=== PATIENT | male | born 1950 | race Caucasian/White ===

== ENCOUNTER 2017-03-06 18:08 | Inpatient (IN) | payer MEDICARE, OTHER ==
[~2017-03-06] VITALS: Ht 182.9 cm; Wt 117.2 kg
[~2017-03-06 18:08] MED LIST: ASCO250T6 PO; BUM1 PO; CHOL200035 PO; COU25 PO; COU5 PO; COZ25 PO; DOXE1CAP PO; FEBU40TA PO; FES300 PO; K10 PO; METO-271 PO; SIMV40TA5 PO; SPIR25TA PO; TAM4 PO; [UNRECOGNIZED DRUG - CODE] PO
[2017-03-06 18:26] VITALS: BP 83/56; PULSE 144; RESP 18; O2SAT 97
--- NOTE | 2017-03-06 18:53 | ED.REPORT ---
HPI-Chest Pain 40 and Over Date of Service Mar 06, 2017 ED Provider: Dr. Nicole The pt is a 67 y/o male on Warfarin with a hx of HTN, DM, chronic ischemic cardiomyopathy, A-fib (with defibrillator pacemaker), CAD, one-vessel bypass surgery, mitral valve disease (s/p annuloplasty repair), and stage 3 kidney disease who presents to the ED due to low BP and high heart rate, onset 6 hours ago. The pt had called Dr. Waller reporting BP of 77/60 and HR of 140, who recommended he go to the ED for cardioversion. He went for a walk this morning after which he began feeling sluggish. Associated sx include exertional shortness of breath and intermittent lightheadedness He denies chest pain. Nursing Notes Stated Complaint: LOW BLOOD PRESSURE/SENT FROM DR WALLER Chief Complaint: General Complaint Nursing Notes Reviewed: Yes Allergies: Coded Allergies: Sulfa (Sulfonamide Antibiotics) (Verified Allergy, Severe, 01/31/12) allopurinol (Unverified Allergy, Unknown, RASH - DIFFUSE, 08/03/13) Uncoded Allergies: PENICILLIN (Allergy, 08/03/13) Scheduled Ascorbic Acid-Expunged Drug, Do Not Renew! (Vitamin C-Expunged Drug, Do Not Renew!) 250 Mg Tablet 500 MG PO DAILY Bumetanide (Bumetanide) 1 Mg Tablet 3 MG PO BID CHOLECALCIFEROL-Expunged Drug, Do Not Renew! (VITAMIN D3-Expunged Drug, Do Not Renew!) 2,000 Unit Capsule 2,000 UNIT PO DAILY Febuxostat-Expunged Drug, Do Not Renew! (Uloric-Expunged Drug, Do Not Renew!) 40 Mg Tablet 40 MG PO DAILY OR TAKE DIRECTED Ferrous Sulfate-Expunged Drug, Do Not Renew! (Feosol-Expunged Drug, Do Not Renew !) 325 Mg Tablet 325 MG PO BID Losartan-Expunged Drug, Do Not Renew! (Losartan-Expunged Drug, Do Not Renew!) 25 Mg Tablet 25 MG PO DAILY Metoprolol Succinate ER (Metoprolol Succinate ER) 50 Mg Tab.er.24h 50 MG PO QAM Metoprolol Succinate ER (Metoprolol Succinate ER) 25 Mg Tab.er.24h 25 MG PO HS Mexiletine HCl (Mexiletine HCl) 200 Mg Capsule 200 MG PO Q8 Simvastatin-Expunged Drug, Choose New Med! (Simvastatin-Expunged Drug, Choose New Med!) 40 Mg Tablet 1 TAB PO DAILY Tamsulosin-Expunged Drug, Do Not Renew! (Flomax-Expunged Drug, Do Not Renew!) 0.4 Mg Capsule 0.4 MG PO DAILY Warfarin Sodium (Warfarin Sodium) 5 Mg Tablet 5 MG PO DAILY General Time Seen by MD: 18:52 Chief Complaint Shortness of breath Hx Obtained From: Patient Arrived By: Walk-in Sudden in Onset?: Yes Onset Occurred: 5 - 8 hours ago Symptom Duration: Since onset Severity: Current: No pain currently Severity: Maximum: No pain Recent Healthcare: Recent doctor visit Past Medical History Past Medical History 1. Coronary artery disease, with previous history of coronary artery bypass grafting in 1999. a. Severe ischemic cardiomyopathy, with last ejection fraction 20% to 25%, status post AICD placement in 2006. 2. Mitral valve disease, status post annuloplasty repair. AV node ablation and biventricular ICD placement. 3. Chronic atrial fibrillation, on warfarin. 4. Stage 3 chronic kidney disease. 5. Right middle lung pneumonia, April 2010, requiring hospitalization. 6. Atopic dermatitis. 7. Chronic venous stasis with recurrent lower extremity cellulitis. 8. Hypertension. 9. Dyslipidemia. 10. Obesity. 11. Gout. 12. Chronic lung disease, with last pulmonary function test June 2013 showing mixed moderate restrictive and obstructive pattern. 13. Chronic anemia, on iron replacement. 14. BPH. 15. DM Past Surgical History Annuloplasty repair. AV node ablation and biventricular ICD placement. One vessel bypass surgery Mitral valve repair. Smoking History Unknown if Ever Smoker Social History Other Social History: Good social support, Ambulatory Status Independent Review of Systems Reports: low BP around 77/60 Reports: high HR around 140 Reports: feeling sluggish Respiratory: Reports: Shortness of breath Cardiovascular: Denies: Chest pain Neurologic: Reports: Lightheaded Complete sys rev & neg: except as marked. Physical Exam Initial Vital Signs Vital Signs (First) Date Time Temp Pulse Resp B/P Pulse Ox O2 Delivery O2 Flow Rate FiO2 03/06/17 18:26 36.4 144 18 83/56 97 Room Air Initial VS: Reviewed, Vital signs abnormal Head / Eyes: Atraumatic, Normocephalic Neck: Supple, Non-tender, Full range of motion Extremities: Vascular intact, Neuro intact, No swelling, No tenderness Skin: Warm, Dry, No cyanosis Neurologic: Alert, Oriented, Nonfocal General/Constitutional: Awake, Alert, Cooperative Respiratory / Chest: Atraumatic, Breath sounds NL, Breath sounds = bilat, No respiratory distress, No rales, No rhonchi, No wheezing Cardiovascular: Heart sounds NL, No gallop, No murmurs, No rubs Heart Rate / Rhythm: Positive: Irregular rhythm Wide-complex tachycardia Abdomen: Atraumatic, Soft, Non-tender, No guarding, No rebound Interpretation & Diagnostics Lab Results Interpretation Result Diagram: 03/06/17 1847 03/06/17 1847 Test 03/06/17 18:47 White Blood Count 6.8th/mm3 (3.8-10.1) Red Blood Count 3.71mil/mm3 (4.40-5.80) Hemoglobin 11.7g/dL (13.8-17.2) Hematocrit 36.4% (41.0-50.0) Mean Corpuscular Volume 98.1fL (81-100) Mean Corpuscular Hemoglobin 31.5pg (27.0-35.0) Mean Corpuscular Hemoglobin Concent 32.1% (32.0-37.0) Red Cell Distribution Width 13.7% (12.3-15.4) Platelet Count 115bil/L (150-400) Neutrophils (%) (Auto) 68.3% (40-74) Lymphocytes (%) (Auto) 18.3% (14-46) Monocytes (%) (Auto) 10.7% (4-12) Eosinophils (%) (Auto) 2.1% (0-5) Basophils (%) (Auto) 0.3% (0-3) Prothrombin Time 24.8sec (8.1-12.5) Prothromb Time International Ratio 2.28ratio Sodium Level 132mEq/L (134-144) Potassium Level 4.4mEq/L (3.5-5.2) Chloride Level 91mEq/L (97-108) Carbon Dioxide Level 24mmol/L (18-29) Blood Urea Nitrogen 71mg/dL (8-27) Creatinine 2.66mg/dL (0.76-1.27) Estimat Glomerular Filtration Rate 26mL/min (>59) Glucose Level 126mg/dL (60-99) Calcium Level 8.7mg/dL (8.5-10.1) Magnesium Level 2.5mg/dL (1.6-2.6) Total Bilirubin 0.4mg/dL (0.0-1.2) Aspartate Amino Transf (AST/SGOT) 19U/L (0-50) Alanine Aminotransferase (ALT/SGPT) 17U/L (0-44) Alkaline Phosphatase 119U/L (25-160) Troponin T < 0.010ug/L (0.0-0.011) Pro-B-Type Natriuretic Peptide 28401yb/mL (0-376) Total Protein 7.7g/dL (6.4-8.4) Albumin 4.3g/dL (3.4-5.0) Hold Mark Top Tube Received (Received) ECG Interpretation ECG Interpretation: Wide complex tachycardia. Rate 143. Right bundle branch block Time: 18:41 Interpreted by: ED physician CBC Interpretation Hgb low, Platelets low BMP / CMP Interpretation Na low, K+ normal, Glucose elevated, BUN elevated, Creatinine elevated Cardiac / Vascular Lab Interp BNP elevated, Troponin normal Serum Coags Interpretation INR normal, PT elevated X-Ray Chest Interpretation Chest Xray Interpretation: IMPRESSION: Allowing for technique and in comparison to old films there is no acute disease seen in the semi-upright portable chest. Dictated by: Jared Houston M.D. on 03/06/2017 at 20:07 Approved by: Jared Houston M.D. on 03/06/2017 at 20:09 View: Portable, 1 view Interpretation / Wet Read by: Interpret - Radiologist Procedures Electrical Cardioversion Electrical Cardioversion: 6 total cardioversions Time: 19:03 Procedure Performed by: Allied health pract Indication: Ventricular tachycardia Consent / Setup / Site Prep: Consent from patient, Time-out performed, Placed on oxygen, Placed on pulse oximeter, Place on ekg monitor tech, Hand hygiene observed, Stand sterile technique Procedural Sedation/Analgesia: Sedation: Ketamine Procedure Successful: Yes Post-Procedure / Complications: No complications, Condition improved, Tolerated procedure well, Patient stable Proced Mod Sedation/Analgesia Time: 19:00 Procedure Performed by: ED physician Sedation Time: 10 - 15 min Consent / Setup: Consent from patient, Time-out performed, Hand hygiene observed, Stand sterile technique, Position supine Indication: Other (cardioversion) Preparation: monitor technician applied, Pulse oximeter applied, Constant attendance, IV access established, Eval last meal time, Supplemental oxygen, Procedure explained, Suction available, End tidal CO2 mon applied Mallampati: Class & Anatomy: 1 tonsils/uvula/s palate Airway Exam: Normal facial anatomy, Normal neck anatomy, Normal anatomy CVS/Resp Exam: Normal breath sounds Neuro Exam: Alert, Responsive Sedation: Sedation: Ketamine Response During Procedure: Handled secretions adeq, Maintained airway well, Oxygenation stable, Sedation appropriate Complications During/After: None Reversal: None required Mental Status After Procedure: Alert, Oriented X3, Response to verbal stim, Response to painful stim, Normal per age Re-Eval/Medical Decision Source of Hx: Old records Time of Eval: 18:45 Re-Evaluation/Progress Note: Discussed diagnosis and plan to do a cardioversion post sedation. The pt understands and agrees with the plan. All questions answered. Time of Eval: 19:02 Re-Evaluation/Progress Note: First cardioversion. Rate down to 60. Discussed the plan to admit with the pt's . She understands and agrees with the plan. All questions answered. Time of Eval: 19:37 Re-Evaluation/Progress Note: Rechecked the pt. He is awake and alert. HR normal. Consultation #1: Referral / Consult Name: Tyrone Renae MD Consulted With: Cardiology Call Returned at: 19:11 Ragman: Agrees with eval, Agrees with plan Note: He agrees with the plan to administer amiodarone and fluids. Consultation #2: Referral / Consult Name: Tyrone Renae MD Consulted With: Cardiology Call Returned at: 19:49 Ragman: Agrees with eval, Agrees with plan Note: Dr. Renae updated on the pt's condition. He agrees with the plan to admit. Consultation #3: Referral / Consult Name: Milo Lopes MD Consulted With: Hospitalist Call Returned at: 19:43 Ragman: Will see patient, Agrees with eval, Agrees with plan, Accepts admit Counseled Regarding: Diagnosis, Lab results, Need for admission Discharge & Departure Primary Impression: Ventricular tachycardia Disposition: ADMITTED TO HOSPITAL Referrals: Marc Craft DO (PCP) Crit Care Except Billable Proc Time Spent: 30-74 minutes Services Performed: Patient management by me, Time spent at bedside, Reviewing test results, Reviewing imaging, Discussing patient care, Documentation in record, Time with fam/surrogate Critical Care Notes: Cardioversion Scribe Attestation Portions of this note were transcribed by Pedro Lr. Dr.Beia Tabitha, personally performed the history,physical exam and medical decision-making;I reviewed and confirmed the accuracy of the information in the transcribed note. Signed by Karan Rosario. 03/06/17 copies to: Marc Craft Todd P DO Mar 06, 2017 18:53 Pedro Lr Mar 06, 2017 19:15 Cardioversion Scribe Attestation Portions of this note were transcribed by Pedro Lr. Dr.Beia Tabitha, personally performed the history,physical exam and medical decision-making;I reviewed and confirmed the accuracy of the information in the transcribed note. Signed by Karan Rosario. 03/06/17 copies to: Marc Craft Todd P DO Mar 06, 2017 18:53 Pedro Lr Mar 06, 2017 19:15 Christopher Nicole DO Mar 06, 2017 18:53 Adeline,Pedro Mar 06, 2017 19:15
[2017-03-06] MEDS ORDERED: 0.9% Sodium Chloride 500 ML IV ONE (18:55)
[2017-03-06] MEDS ORDERED: Adenosine 3 mg/mL 2 mL Inj ONE (18:55)
[2017-03-06 18:59] LABS: BASOPHILS % (AUTO) 0.3 % (0-3); EOSINOPHILS % (AUTO) 2.1 % (0-5); MONOCYTES % (AUTO) 10.7 % (4-12); Mean Corpuscular Hemoglobin 31.5 pg (27.0-35.0); Mean Corpuscular Volume 98.1 fL (81-100); NEUTROPHILS % (AUTO) 68.3 % (40-74); Platelet Count 115 bil/L (150-400)
[2017-03-06] MEDS ORDERED: Amiodarone 150 mg/100 mL D5W Premix IV ONE (19:04)
[2017-03-06 19:05] VITALS: BP 102/73; PULSE 140; O2SAT 95
[2017-03-06 19:12] LABS: INR 2.28 ratio
[2017-03-06 19:34] LABS: TROPONIN T < 0.010 ug/L (0.0-0.011)
--- NOTE | 2017-03-06 20:01 | PCM.HPMED ---
Subjective Date of Service Mar 06, 2017 Primary Provider: Admitting Physician: Primary Care Physician: Sathish Attending Physician: Chief Complaint: Weak and patient noted a low blood pressure and elevated heart rate History of Present Illness: Angel Abebe is 67-year-old male with past medical history significant for four- vessel CABG in 1999, ischemic cardiomyopathy, atrial fibrillation status post AV node ablation and biventricular ICD placement on chronic anticoagulation with warfarin who presents to the ER per Dr. Fields due to ventricular tachycardia and hyportension. This morning the patient went outside and was carrying some wood and began to feel somewhat sluggish and short of breath. At this time his blood pressure was 77/66 and heart rate of 140. He called Dr. Fields with these results who subsequently interrogated his ICD. It showed ventricular tachycardia and Dr. Fields recommended patient present to the ER for cardioversion. On presentation to the emergency department patient's vitals were temp 36.4, pulse 144, respiratory rate 18, blood pressure 83/56, saturating 97% on room air. Initial labs revealed PT 24.8 and INR 2.28 along with an elevated BUN and creatinine of 71 and 2.66. EKG showed ventricular tachycardia at a rate of 143 with right bundle branch block. Consequently, the patient was cardioverted 4 times with 120 J and started on a Amiodarone drip after initial bolus of 300 mg. Patient remained in normal sinus rhythm at a rate of 60 for approximately 45 minutes at which time he converted back to wide complex ventricular tachycardia at a rate of 130 to 140. Patient again was cardioverted with 120 J and successfully converted to normal sinus rhythm again a rate of 60. Due to the patient's frequent conversion back to ventricular tachycardia Dr. Renae, [address], was consulted and recommended use of lidocaine and discontinuation of amiodarone if patient converted again. Patient did convert back to ventricular tachycardia and 100 mg of lidocaine was given. Patient remained in normal sinus rhythm for approximately 20 minutes until converted back to ventricular tachycardia as he was being transported to the ICU. A subsequent dose of 100 mg lidocaine was given and lidocaine infusion was started. Of note patient's last echocardiogram was in 2013 and showed an EF of 25-30%. Review of Systems: Comprehensive review of systems was conducted with the patient and found to be negative except as noted above in HPI. Allergies Coded Allergies: Sulfa (Sulfonamide Antibiotics) (Verified Allergy, Severe, 7/18/12) allopurinol (Unverified Allergy, Unknown, RASH - DIFFUSE, 08/03/13) Uncoded Allergies: PENICILLIN (Allergy, 08/03/13) Home Medications Obtained from outpatient records on 01/04/2017 05/31/2016 bumetanide 1 mg tablet take 3 Tablet by oral route 2 times every day 06/26/2016 Flomax 0.4 mg capsule take 1 capsule (0.4MG) by ORAL route every day 07/28/2015 iron ER 325 mg (65 mg iron) capsule,extended release take 1 Capsule by Oral route every day 11/16/2016 losartan 25 mg tablet take 1 tablet by oral route every day 12/17/2015 metoprolol succinate ER 25 mg tablet,extended release 24 hr 2 tablets in the am 1 tablet in the evening 12/29/2016 mexiletine 200 mg capsule take 1 capsule by oral route every 8 hours with food 05/31/2016 simvastatin 40 mg tablet take 1 tablet by oral route every day in the evening 05/31/2016 spironolactone 25 mg tablet take 0.5 Tablet (12.5MG) by oral route every day 06/14/2016 ULORIC 40MG TAB Take 1 tablet by mouth every day 08/15/2013 Vitamin C 500 mg tablet tab 1 by mouth daily Vitamin D3 2,000 unit capsule take 1 Capsule by Oral route once every day 10/05/2016 warfarin 5 mg tablet take 1 tablet (5mg) daily except 1 1/2 tablets ( 7.5mg) Wed PMH Third-degree AV block Ventricular tachycardia Status post CABG Mitral regurgitation Severe left ventricular systolic dysfunction Ischemic cardiomyopathy Hyperlipidemia Tricuspid regurgitation History of myocardial infarction CKD stage IV Hypertension Hyperlipidemia CAD BPH Atrial fibrillation status post AV node ablation and biventricular ICD placement Surgical History Biventricular ICD placement in 2007 CABG 4 in 1999 Mitral valve repair in 1999 Family History Father with type I diabetes Father diagnosed with CAD at age 43 now Mother at age 45 secondary to MVA Sister with hyperlipidemia and type I diabetes Multiple uncles with CAD and subsequent CABG procedures Social History Hx Alcohol Use: No Hx Substance Use: No Hx Tobacco Use: Yes (smoked for 40 years) Smoking Status: Former Smoker Years of Smokin Living Arrangement: with Family Exam Vital Signs Vital Sign - Last Date Time Temp Pulse Resp B/P Pulse Ox O2 Delivery O2 Flow Rate FiO2 8/22/17 18:26 36.4 144 18 83/56 97 Room Air Exam General: Mild distress, well-developed, well-nourished, appropriately interactive HEENT: Normocephalic, atraumatic. External ears without defect. Pupils equal, round, and reactive to light and accommodation. Anicteric sclerae, moist conjunctivae, and no lid lag. Dry oral mucosa. Neck: Supple with full range of motion. No lymphadenopathy or thyromegaly. Cardiovascular: Initially tachycardic but after lidocaine regular rate and rhythm with no murmurs appreciated. Pulmonary: Clear to auscultation bilaterally with no crackles, wheezes, or rhonchi. Normal respiratory effort with no use of accessory muscles. Abdomen: Bowel tones present. Soft, nontender, nondistended. No hepatosplenomegaly or masses appreciated. Extremities: Bilateral lower extremity pitting edema left greater than right extending to mid calf. Skin: Small area of ecchymosis on left lower abdomen. Lower extremity venous stasis changes left greater than right. Numerous surgical scars from CABG, ICD placement, and left vein graft. Neurological: Cranial nerves grossly intact. Normal muscle strength, tone, and bulk. Reflexes, coordination, and sensory function within normal limits. No known gait impairment. Psychiatric: Normal mood and affect. Alert and oriented to person, place, and time. Lab and Diagnostics Result Diagram: 03/06/17184603/06/171846 X-Rays, CTs and MRIs X-RAY CHEST ONE VIEW, PORTABLE ([id number]) IMPRESSION: Allowing for technique and in comparison to old films there is no acute disease seen in the semi-upright portable chest. Dictated by: Jared Houston M.D. on 03/06/2017 at 20:07 Approved by: Jared Houston M.D. on 03/06/2017 at 20:09 12-lead ECG Wide-complex ventricular tachycardia at a rate of 143 with right bundle branch block Cardiac Echo Impressions Echocardiogram Report Interpretation Summary The left ventricle is severely dilated. There is mild concentric left ventricular hypertrophy. The ejection fraction is estimated to be 25-30%. There is akinesis of the mid and distal anterior wall with dyskinesis of the apex. The distal inferior wall is akinetic as well as the mid and distal septum. Since the prior exam from 08/04/2013, the LV has dilated and the mid and distal inferior wall shows worsened contractility. In comparison to the exam from 09/19/2012, the contractility looks the same or better. Reading Physician:11:05 AM Assessment & Plan Angel Abebe is 67-year-old male with past medical history significant for one- vessel bypass in 1999, ischemic cardiomyopathy, recurrent ventricular tachycardia, atrial fibrillation status post AV node ablation and biventricular ICD placement on chronic anticoagulation with warfarin who presents to the ER per Dr. Fields due to ventricular tachycardia and hyportension. Wide-complex ventricular tachycardia, present on admission, active. Patient has had recurrent ventricular tachycardia in the past but had been well- controlled on mexiletine 200 mg every 8 hours and metoprolol succinate 50 mg every morning and 25 mg in the evening. On presentation to the ED EKG showed wide complex ventricular tachycardia at a rate of 143. - Patient was cardioverted a total of 5 times with 120 J which initially proved successful but patient converted back to ventricular tachycardia. Amiodarone bolus and drip was unsuccessful. After discussion with Dr. Renae, [address], amiodarone drip was stopped and lidocaine was initiated. - Patient responded to initial dose of 100 mg of lidocaine but then converted back to ventricular tachycardia and an additional dose was given along with starting a lidocaine infusion at a rate of 1 mg/m. - No electrolyte abnormalities noted. TSH pending. - Pacer pads placed and to remain on patient. - Admitted to ICU for close monitoring. - Cardiology is aware of patient and has been consulted and agrees to see patient in the morning. Chronic kidney disease stage IV, present admission, active. In review of outpatient records it appears the patient baseline creatinine is around 1.9-2.0. - Creatinine currently 2.66 and BUN 71. - Gentle IV fluids as patient's EF is 25-30%. - Repeat labs in the morning. - We will attempt to avoid nephrotoxic medications. Ischemic cardiomyopathy secondary to CAD status post bypass in 1999, present on admission, chronic. Patient has stable moderately severe left ventricular systolic dysfunction per Dr. Fields who he closely follows with. - Home medication regimen includes bumetanide 3 mg twice a day, losartan 25 mg daily, and spironolactone 12.5 mg daily. - Home medications held at this time. Cardiology and/or day team to restart when deemed appropriate. Atrial fibrillation status post AV node ablation with biventricular ICD placement, present on admission, chronic. - Anticoagulated with warfarin. INR on presentation was 2.28. - Continue warfarin. - Repeat PT/INR in the morning. Coronary artery disease status post 1 vessel bypass in 1999, present on admission, chronic. - Home regimen of simvastatin 40 mg nightly held. BPH, present on admission, chronic. - Due to tenuous blood pressures home regimen of Flomax 0.4 mg daily held. PRN Medications - Acetaminophen as needed for mild pain/fever/headache - Bowel regimen as needed Patient is admitted under inpatient status with expected length of stay greater than 2 midnights due to severity of presenting symptoms, risk of adverse event, and complexity of treatment plan. Pain Evaluation: Adequate Pain Control GI Prophylaxis: Not indicated VTE Prophylaxis: Theraputic Anticoag with Warfarin VTE Mechanical Devices: Intermittant Pneumatic CD Resuscitation Status: CPR: Attempt Resuscitation Time spent 55 minutes critical care time spend Attending Statement The patient was seen and examined together with Dr. Barron on 03/06 and I agree with the history, exam and plan as outlined in the note above. ANA ROSA BARRON DO Mar 06, 2017 20:01 Milo Lopes MD Mar 06, 2017 23:58
[2017-03-06] MEDS ORDERED: Amiodarone 50 mg/mL 3 mL Inj IV ONE ×3 (20:07→22:40)
--- NOTE | 2017-03-06 20:10 | DRSVH ---
PROCEDURE: X-RAY CHEST ONE VIEW, PORTABLE ([id number]) INDICATIONS: TACHYCARDIA TECHNIQUE: One view of the chest was acquired. COMPARISON: [facility], CR, CHEST 2VW, 01/30/2012, 20:56. FINDINGS: Surgical changes and devices: Dual-lead cardiac pacemaker is present. Previous sternotomy is noted. C ardiac monitor leads are seen. Lungs and pleura: No pleural effusions or pneumothorax. There is old pleural thickening in the right chest unchanged since 2011. Lungs are clear. Mediastinum: Mediastinal contours appear normal. Heart size is normal. Bones and chest wall: No suspicious bony lesions. Overlying soft tissues appear unremarkable. IMPRESSION: Allowing for technique and in comparison to old films there is no acute disease seen in t he semi-upright portable chest. Dictated by: Jared Houston M.D. on 03/06/2017 at 20:07 Approved by: Jared Houston M.D. on 03/06/2017 at 20:09
[2017-03-06] MEDS ORDERED: 0.9% Sodium Chloride 1,000 ML IV SCH ×2 (20:52→22:34)
[2017-03-06] MEDS ORDERED: Senna-Docusate 8.6-50 mg Tablet PO PRN (20:55)
[2017-03-06] MEDS ORDERED: Polyethylene Glycol (PEG) 17 Gm Powder PO PRN (20:55)
[2017-03-06] MEDS ORDERED: Alum-Mag Hydrox-Simeth 30 mL Suspension PO PRN (20:55)
[2017-03-06] MEDS ORDERED: Lidocaine 2% 20 mg/mL 5 mL Cardiac Syringe IVPUSH ONE ×2 (21:15→22:40)
[2017-03-06] MEDS: D5W IV SCH (21:46)
[2017-03-06] MEDS: LIDOCAINE 2 GM/500 ML IV SCH (21:46)
[2017-03-06 21:49] VITALS: BP 103/58; PULSE 60; RESP 19; O2SAT 99
[2017-03-06 22:08] VITALS: BP 97/63; PULSE 60; RESP 19; O2SAT 98
[2017-03-06] MEDS ORDERED: METO-272 PO (22:27)
[2017-03-06] MEDS ORDERED: MEXI200C PO (22:27)
[2017-03-06] MEDS ORDERED: WARF5TAB7 PO (22:27)
[2017-03-06] MEDS ORDERED: METO25TA99 PO (22:27)
[2017-03-06] MEDS ORDERED: BUME1TAB4 PO (22:28)
[2017-03-06] MEDS ORDERED: Adenosine 3 mg/mL 2 mL Inj IVPUSH ONE ×2 (22:35)
[2017-03-06] MEDS ORDERED: Ketamine 10 mg/mL 20 mL Inj IV ONE ×2 (22:35)
[2017-03-06] MEDS ORDERED: Amiodarone 150 mg/100 mL D5W IV ONE (22:45)
--- NOTE | 2017-03-06 23:21 | PCM.PHAPRO ---
Progress Date of Service: Mar 06, 2017 Weak and patient noted a low blood pressure and elevated heart rate Warfarin Management per Pharmacy: Indication: Stroke prophylaxis as patient has atrial fibrillation ([id number]- Vasc = 5) Goal INR: 2-3 Home Dose: Warfarin 5 mg PO daily Labs: Hgb/Hct: 11.7/36.4 Plt: 115 INR: 2.28 Drug Interactions: Amiodarone (major - recommend 30-50% decrease in dose) Recommendation: Warfarin 3 mg PO x 1 tonight. INR ordered daily x 7 days. Pharmacy to continue to monitor and adjust dose as needed. Thank You, Mirna Dale, Pharm D. Mirna Dale Mar 06, 2017 23:21
[2017-03-06 23:34] VITALS: BP 105/66; PULSE 60; RESP 13; O2SAT 96
--- NOTE | 2017-03-07 01:18 | NUR ---
Admit Patient admitted to room 2015 just prior to 2200. Patient in vtach on arrival, "converted while in elevator" according to RN. at bedside. Lidocaine push given by ED nurse which converts patient back to a paced rhythm of 60. Lidocaine drip hung. Patient A&O during vtach episode. Patient oriented to room and call light. Significant other present with patient. Plan of care for the night discussed with the patient.
[2017-03-07 02:54] LABS: APPEARANCE,URINE HAZY (CLEAR,HAZY); COLOR,URINE STRAW (YELLOW); OCCULT BLOOD,URINE NEGATIVE (NEGATIVE); UROBILINOGEN,URINE NORMAL (NORMAL)
[2017-03-07 03:04] LABS: Mean Corpuscular Volume 97.2 fL (81-100)
[2017-03-07 03:11] LABS: INR 2.27 ratio
[2017-03-07 03:22] LABS: Magnesium 2.4 mg/dL (1.6-2.6); Phosphorus 4.4 mg/dL (2.5-4.9)
[2017-03-07 03:41] VITALS: BP 106/58; PULSE 60; RESP 14; O2SAT 97
[2017-03-07 08:00] VITALS: BP 108/58; PULSE 62; RESP 14; O2SAT 99
--- NOTE | 2017-03-07 08:03 | NUR ---
Case Management: Clarification of patient status -> inpatient per MD order from admission. Jose Antonio Gross, RN
[2017-03-07] MEDS ORDERED: ASCO500C6 PO (09:41)
[2017-03-07] MEDS ORDERED: FEBU40TA PO (09:41)
[2017-03-07] MEDS ORDERED: LOSA25TA21 PO (09:41)
[2017-03-07] MEDS ORDERED: CHOL10008 PO (09:41)
[2017-03-07] MEDS ORDERED: FERR-83 PO (09:41)
[2017-03-07] MEDS ORDERED: TAMS0.4C98 PO (09:41)
[2017-03-07] MEDS ORDERED: Amiodarone 150 mg/100 mL D5W Premix IV ONE (10:31)
[2017-03-07] MEDS ORDERED: Amiodarone 360 mg/200 mL D5W Premix IV ONE (10:31)
--- NOTE | 2017-03-07 11:06 | NUR ---
NUTRITION ASSESSMENT: ASSESS: Pt is a 67yo M admitted to CCU for V tach and renal insufficiency. He is currently NPO x1 day. Cardiology is following. PMHX: Afib, CABG, ischemic cardiomyopathy, HLD, HTN, CKD stg IV LABS: Reviewed. 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 GI: 0 BM yet SKIN: no major issues CURRENT WTS: 117.9kg, BMI 35.3kg/m2, IBW: 80.9kg DIET: NPO x1 EST. NEEDS: BMI Kcals: 2360-2595kcal/day (20-22kcal/kg) Pro: 95-120g/day (1.2-1.5g/kg IBW) NUTRITION DIAGNOSIS: 1.) Inadequate oral intake related to decreased ability to consume sufficient energy as evidenced by current NPO status NUTRITION INTERVENTION: 1.) Recommend advance diet when medically appropriate MONITOR / EVAL: NPO, diet advce, GI, wt, labs, POC, nutrition status. Will continue to monitor per moderate nutrition risk guidelines.
[2017-03-07 12:00] VITALS: BP 107/63; PULSE 62; RESP 13; O2SAT 100
--- NOTE | 2017-03-07 12:54 | NUR ---
Case Management: LIZ explained to patient - he signed - original to chart, copy to patient's spouse at the bedside. Addendum: 03/07/17 at 1257 by KIRSTY REBOLLAR CM Signature: Jose Antonio Rebollar RN
[2017-03-07 16:00] VITALS: BP 108/69; PULSE 60; RESP 15
[2017-03-07] MEDS: LIDOCAINE 2 GM/500 ML IV SCH (17:26)
[2017-03-07] MEDS: D5W IV SCH (17:26)
--- NOTE | 2017-03-07 17:26 | NUR ---
Paced rhythm, 60s. Up to chair much of today. Brief runs of v-tach while up, X5 this shift; Lidocaine gtt increased to 4mg/min per cardiology. Painfree, in good spirits, eating well. VSS, afebrile.
--- NOTE | 2017-03-07 17:33 | NUR ---
Social Work: Initial Assessment/Multidisciplinary Rounds D: Per EMR review, pt is a 67 year old male admitted for V Tach, renal insufficiency. Pt is Medicare with [employer] Blue [employer] Supplement; pt has no LTC or VA benefits. PCP is Marc Craft MD. NOK is Whitley Abebe, , . Advanced directives completed- requested copy. Reamdit score not entered. Pt discussed in Multidisciplinary rounds. Capacity for self care discussed; no concerns. Pt is I at baseline. D/c needs unknown due to CCU status. HELP DESK ASSOCIATE met with the patient at bedside. Sw role explained, contact info and d/c planning checklist provided. See initial assessment. Pt lives on [address] with his in a single story home with 3 steps to enter. Pt is I with ADLs and uses no DME and continues to drive. Pt has never had HH or skilled rehab. Pt and spouse anticipate discharge home once medically stable however are receptive to discharge planning as needs arise. A: pt who is I at baseline. P: Evolving; HELP DESK ASSOCIATE to continue to follow to assess pt's discharge needs pending clinical course RUBEN Arguello Addendum: 03/07/17 at 1736 by BRITT MARQUEZ Amended: Links added.
--- NOTE | 2017-03-07 18:03 | NUR ---
Amiodarone was not started today per fuel efficient automobile designer; pharmacy notified regarding Coumadin dosing.
[2017-03-07 19:26] VITALS: BP 123/58; PULSE 60; RESP 15; O2SAT 96
--- NOTE | 2017-03-07 20:51 | PCM.PNMED ---
Subjective Date of Service Mar 07, 2017 Subjective Subjective: Patient states that he is feeling well this morning, continues to have minor chest pain, minor shortness of breath. Sitting up in bed on exam Events Overnight: No acute events overnight. ROS: Chest pain, shortness of breath. Denies fever/chills, nausea/vomiting, headache, weakness, abdominal pain, chest pain, shortness of breath, increased swelling in hands or feet. Exam Vital Signs Vital Sign - Last Date Time Temp Pulse Resp B/P Pulse Ox O2 Delivery O2 Flow Rate FiO2 03/07/17 19:26 36.6 60 15 123/58 96 Room Air 03/06/17 22:08 2 Intake and Output 03/06/17 03/06/17 03/07/17 Cumulative From/Thru 15:00 23:00 07:00 03/06/17 18:26 - 03/07/17 06:27 Intake Total 643 ml 643 ml Output Total 850 ml 850 ml Balance -207 ml -207 ml Intake Oral 100 ml 100 ml IV Total 543 ml 543 ml Output Urine Total 850 ml 850 ml Exam General: No acute distress, well-developed, well-nourished Head: Normocephalic, atraumatic. External ears without defect. Eyes: Pupils equal, round, and reactive to light and accommodation. Anicteric sclerae, moist conjunctivae. Neck: Normal range of motion, no lymphadenopathy noted Cardiovascular: Regular rate and rhythm with no murmurs, rubs, or gallops appreciated Pulmonary: Clear to auscultation bilaterally with no crackles, wheezes, or rhonchi. Normal respiratory effort with no use of accessory muscles. Abdomen: Bowel tones present. Soft, nontender, nondistended. Extremities: No clubbing, cyanosis, edema Skin: Normal temperature, turgor, and texture; no rash, ulcers, or subcutaneous nodules appreciated. Neurological: Cranial nerves grossly intact. Reflexes, coordination, and sensory function within normal limits. Normal muscle strength, tone, and bulk. Psychiatric: Normal mood and affect. Alert and oriented to person, place, and time IVs and Medications IV Fluids 500 mL normal saline delivered with IV medications. Medications Reviewed: Medications were reviewed in detail Medications High risk medications include: Warfarin Lidocaine drip Lab and Diagnostics Result Diagram: 03/07/17 0240 03/07/17 0240 X-Rays, CTs and MRIs X-RAY CHEST ONE VIEW, PORTABLE ([id number]) IMPRESSION: Allowing for technique and in comparison to old films there is no acute disease seen in the semi-upright portable chest. Dictated by: Jared Houston M.D. on 03/06/2017 at 20:07 Approved by: Jared Houston M.D. on 03/06/2017 at 20:09 12-lead ECG Wide-complex ventricular tachycardia at a rate of 143 with right bundle branch block Cardiac Echo Impressions Echocardiogram Report Interpretation Summary The left ventricle is severely dilated. There is mild concentric left ventricular hypertrophy. The ejection fraction is estimated to be 25-30%. There is akinesis of the mid and distal anterior wall with dyskinesis of the apex. The distal inferior wall is akinetic as well as the mid and distal septum. Since the prior exam from 08/04/2013, the LV has dilated and the mid and distal inferior wall shows worsened contractility. In comparison to the exam from 09/19/2012, the contractility looks the same or better. Reading Physician:11:05 AM Assessment & Plan Angel Abebe is 67-year-old male with past medical history significant for one- vessel bypass in 1999, ischemic cardiomyopathy, recurrent ventricular tachycardia, atrial fibrillation status post AV node ablation and biventricular ICD placement on chronic anticoagulation with warfarin who presents to the ER per Dr. Fields due to ventricular tachycardia and hyportension. Wide-complex ventricular tachycardia, present on admission, active. Patient has had recurrent ventricular tachycardia in the past but had been well- controlled on mexiletine 200 mg every 8 hours and metoprolol succinate 50 mg every morning and 25 mg in the evening. On presentation to the ED EKG showed wide complex ventricular tachycardia at a rate of 143. - Patient was cardioverted a total of 5 times with 120 J which initially proved successful but patient converted back to ventricular tachycardia. Amiodarone bolus and drip was unsuccessful. After discussion with Dr. Renae, front tender, amiodarone drip was stopped and lidocaine was initiated. - Patient responded to initial dose of 100 mg of lidocaine but then converted back to ventricular tachycardia and an additional dose was given along with starting a lidocaine infusion at a rate of 1 mg/m. - No electrolyte abnormalities noted. - TSH within normal limits - Pacer pads placed and to remain on patient. - Admitted to ICU for close monitoring. - Cardiology is aware of patient and has been consulted and agrees to see patient in the morning. - Per cardiology IV lidocaine increase to 4 mg/m - Initial troponin negative Chronic kidney disease stage IV, present admission, active. In review of outpatient records it appears the patient baseline creatinine is around 1.9-2.0. - Creatinine trending down. - Continue to follow - We will attempt to avoid nephrotoxic medications. Ischemic cardiomyopathy secondary to CAD status post bypass in 1999, present on admission, chronic. Patient has stable moderately severe left ventricular systolic dysfunction per Dr. Fields who he closely follows with. - Home medication regimen includes bumetanide 3 mg twice a day, losartan 25 mg daily, and spironolactone 12.5 mg daily. - Home medications held at this time. Cardiology team to restart when deemed appropriate. Atrial fibrillation status post AV node ablation with biventricular ICD placement, present on admission, chronic. - Anticoagulated with warfarin. INR on presentation was 2.28. - Continue warfarin. - Continue to monitor Coronary artery disease, present on admission, chronic. - Status post 1 vessel bypass (1999) - Home regimen of simvastatin 40 mg nightly held. BPH, present on admission, chronic. - Due to tenuous blood pressures home regimen of Flomax 0.4 mg daily held. PRN Medications - Acetaminophen as needed for mild pain/fever/headache - Bowel regimen as needed Disposition: Continue to monitor expected length of stay 1-2 days with discharge home. GI Prophylaxis: Not indicated VTE Prophylaxis: Theraputic Anticoag with Warfarin VTE Mechanical Devices: Intermittant Pneumatic CD Resuscitation Status: CPR: Attempt Resuscitation Time spent 35 minutes Attending Statement I have seen and evaluated patient at bedside in addition to directly supervising care provided by resident physician. I agree with above documentation. Very much appreciated cardiology consultation with this complex patient, will continue to await further recommendations while Lidocaine drip is continued. Jose Medina DO Mar 07, 2017 20:51 Jose Singh DO Mar 08, 2017 08:01
[2017-03-07 23:30] VITALS: BP 132/65; PULSE 60; RESP 24; O2SAT 94
[2017-03-08] MEDS: LIDOCAINE 2 GM/500 ML IV SCH ×2 (01:47→10:53)
[2017-03-08] MEDS: D5W IV SCH ×2 (01:47→10:53)
[2017-03-08 03:35] LABS: Mean Corpuscular Hemoglobin 31.5 pg (27.0-35.0); Mean Corpuscular Volume 97.2 fL (81-100)
[2017-03-08 03:49] LABS: INR 2.46 ratio
[2017-03-08 04:55] LABS: TROPONIN T 0.01 ug/L (0.0-0.011)
[2017-03-08 04:56] VITALS: BP 125/76; PULSE 60; RESP 15; O2SAT 94
[2017-03-08 05:15] LABS: Magnesium 2.4 mg/dL (1.6-2.6); Phosphorus 2.8 mg/dL (2.5-4.9)
--- NOTE | 2017-03-08 06:09 | NUR ---
Cardiac Tele paced, 60 at rest, up to 80s with activity. Patient has a 3 beat run of vtach, otherwise just PVCs are noted on telemetry. Lidocaine gtt remains at 4mg/min. Patient denies any chest discomfort, dizziness, or shortness of breath. MD updated on patient condition. Addendum: 03/08/17 at 0644 by SARABJIT FAULKNER RN After getting up to the edge of the bed to use the urinal patient states he has chest pain. When asked if it feels like his angina usually does he responds yes. Rates it as a 3-4/10. Pain resolves within one minute before an EKG could be performed. No changes to telemetry or HR, O2 and BP stable. No other symptoms.
[2017-03-08 08:45] VITALS: BP 124/59; PULSE 60; RESP 15; O2SAT 94
--- NOTE | 2017-03-08 12:24 | PCM.PHAPRO ---
Progress Weak and patient noted a low blood pressure and elevated heart rate WARFARIN DOSING PER PHARMACY [facility] DFF Date Mar 07-Mar 08-Feb INR 2.28 2.27 2.46 INR change -0.01 0.19 Warf Dose 3 mg 3MG 3 MG A/P Therapeutic INR. Currently taking lower dose than home regimen due to potential drug-drug interactions. Will continue with warfarin 3 mg this evening and continue to monitor for s/s of bleeding. -Reinier Maguire, PharmD Reinier Maguire Mar 08, 2017 12:24
[2017-03-08 12:30] VITALS: BP 142/76; PULSE 60; RESP 15; O2SAT 94
--- NOTE | 2017-03-08 12:30 | PCM.PHAPRO ---
Progress Weak and patient noted a low blood pressure and elevated heart rate [facility] -Feb 18-Mar 03-Mar 04-Mar 05-Mar 06-Feb 23-Mar 08-Feb 2.14 2.14 2.04 1.6 1.65 1.63 2.14 -0.1 1.6 0.05 -0.02 3 2.5 3 2.5 3 5X1 8 MG GIVEN 5+3 6 mg A/P -Subtherapeutic INR. Now stabilized at current level. Has received higher doses the past two doses. -Will dose warfarin at 6 mg today in anticipation of increase in next day or so. Will continue to monitor Reinier Maguire, PharmReinier Morrell Mar 08, 2017 12:30
[2017-03-08] MEDS: MeTOProlol XL 50 mg ER24 Tablet PO SCH (13:07)
--- NOTE | 2017-03-08 13:42 | PCM.CHPCAR ---
Consult Subjective Date of service Mar 08, 2017 Date of admit Mar 06, 2017 at 20:06 Provider Requesting Consult Requesting Provider: Jose Medina DO Primary Care Physician Primary Care Physician: Sathish Chief Complaint Dyspnea, hypotension and tachycardia History of Present Illness This is [id number] male with past medical history significant for CABG x 4 [place] vessels in 1999, ischemic cardiomyopathy, atrial fibrillation s/p AV node ablation and biventricular ICD placement on chronic anticoagulation with warfarin who presents to the ER after contacting Dr Fields for dyspnea, hypotension and tachycardia. He was working in the yard and noticed he was more SOB than usual and slower moving than usual. He checked his blood pressure and found it to be in the 70s systolic with a heart rate of 140. He notified Dr. Fields who remotely interrogated his ICD and was seen to be in ventricular tachycardia. He states he was only having dyspnea and denies palpitation, chest pain, chest pressure, chest discomfort, dizziness or lightheadedness. In the ED he was found to be in ventricular tachycardia. Cardioversion was attempted 4 times and amiodarone was started. He remained in normal sinus rhythm for a short time and converted back to wide complex ventricular tachycardia. Amiodarone was then discontinued and Dr Renae ordered a lidocaine infusion. The patient is currently resting comfortably in bed. He denies dyspnea and continues to denies chest pain, chest discomfort, chest pressure, palpitations, dizziness or lightheadedness. Initial EKG in the ED showed wide complex ventricular tachycardia at a rate of 143. Interrogation of ICD on 02/19/17 showed pacing 96% and a single non sustained vetricular tachycardia lasting 10 seconds. patient's last echocardiogram was in 2013 and showed an EF of 25-30%. Review of CABG procedure notes shows he had saphenous vein to LAD, saphenous vein to OM1, saphenous vein to OM2, saphenous vein to PDA and mitral valve repair with 30mm michael annuloplasty Review of Systems General: Denies: Change in exercise capacity No Chills No Fever Respiratory: Reports: Dyspnea with exertion Denies: Dyspnea at rest Orthopnea Significant dyspnea Cardiovascular: Reports: Lower extremity edema Denies: Chest Discomfort Claudication Lightheadedness or syncope Palpitations Postural lightheadedness Gastrointestinal: Denies: Nausea Vomiting PMH Past Medical History 1. Coronary artery disease, with previous history of coronary artery bypass grafting in 1999. 2. Severe ischemic cardiomyopathy, with last ejection fraction 20% to 25%, status post AICD placement in 2006. 3. Mitral valve disease, status post annuloplasty repair. AV node ablation and biventricular ICD placement. 4. Chronic atrial fibrillation, on warfarin. 5. Stage 3 chronic kidney disease. 6. Right middle lung pneumonia, April 2010, requiring hospitalization. 7. Atopic dermatitis. 8. Chronic venous stasis with recurrent lower extremity cellulitis. 9. Hypertension. 10. Dyslipidemia. 11. Obesity. 12. Gout. 13. Chronic lung disease, with last pulmonary function test June 2013 showing mixed moderate restrictive and obstructive pattern. 14. Chronic anemia, on iron replacement. 15. BPH. 16. DM Scheduled Bumetanide (Bumetanide) 1 Mg Tablet 3 MG PO BID (Reported) Ferrous Sulfate (Ferrous Sulfate) 325 Mg Tablet 325 MG PO BID (Reported) Metoprolol Succinate ER (Metoprolol Succinate ER) 50 Mg Tab.er.24h 50 MG PO QAM (Reported) Metoprolol Succinate ER (Metoprolol Succinate ER) 25 Mg Tab.er.24h 25 MG PO HS ( Reported) Mexiletine HCl (Mexiletine HCl) 200 Mg Capsule 200 MG PO Q8 (Reported) Tamsulosin (Flomax) 0.4 Mg Capsule 0.4 MG PO DAILY (Reported) Warfarin Sodium (Warfarin Sodium) 5 Mg Tablet 5 MG PO DAILY (Reported) Miscellaneous Medications Ascorbic Acid (Vitamin C) 500 Mg Capsule.er 500 MG PO (Reported) Cholecalciferol (Vitamin D3) (Vitamin D3) 1,000 Unit Tab.chew 1,000 UNIT PO ( Reported) Febuxostat (Uloric) 40 Mg Tablet 40 MG PO (Reported) Losartan Potassium (Losartan Potassium) 25 Mg Tablet 25 MG PO (Reported) Discontinued Medications Ascorbic Acid-Expunged Drug, Do Not Renew! (Vitamin C-Expunged Drug, Do Not Renew!) 250 Mg Tablet 500 MG PO DAILY (Reported) Bumetanide-Expunged Drug, Do Not Renew! (Bumetanide-Expunged Drug, Do Not Renew! ) 1 Mg Tablet 3 MG PO BID (Reported) CHOLECALCIFEROL-Expunged Drug, Do Not Renew! (VITAMIN D3-Expunged Drug, Do Not Renew!) 2,000 Unit Capsule 2,000 UNIT PO DAILY (Reported) Doxercalciferol-Expunged Drug, Do Not Renew! (Hectorol-Expunged Drug, Do Not Renew!) 1 Mcg Capsule 1 CAP PO DAILY (Reported) Febuxostat-Expunged Drug, Do Not Renew! (Uloric-Expunged Drug, Do Not Renew!) 40 Mg Tablet 40 MG PO DAILY (Reported) OR TAKE DIRECTED Ferrous Sulfate-Expunged Drug, Do Not Renew! (Feosol-Expunged Drug, Do Not Renew !) 325 Mg Tablet 325 MG PO BID (Reported) Losartan-Expunged Drug, Do Not Renew! (Losartan-Expunged Drug, Do Not Renew!) 25 Mg Tablet 25 MG PO DAILY (Reported) Metoprolol Succinate Inactive Drug Do Not Use (Metoprolol Succinate Inactive Drug Do Not Use) 25 Mg Tab.er.24h 25 MG PO BID Mexiletine-Expunged Drug, Do Not Renew! (Mexitil-Expunged Drug, Do Not Renew!) 150 Mg Capsule 150 MG PO Q8 Potassium Chl-Expunged Drug, Do Not Renew! (M-WTH-Vrpqukae Drug, Do Not Renew!) 10 Meq Tabsr 20 MEQ PO DAILY (Reported) Simvastatin-Expunged Drug, Choose New Med! (Simvastatin-Expunged Drug, Choose New Med!) 40 Mg Tablet 1 TAB PO DAILY (Reported) Spironolactone-Expunged Drug, Do Not Renew! (Spironolactone-Expunged Drug, Do Not Renew!) 25 Mg Tablet 12.5 MG PO QAM (Reported) Tamsulosin-Expunged Drug, Do Not Renew! (Flomax-Expunged Drug, Do Not Renew!) 0.4 Mg Capsule 0.4 MG PO DAILY (Reported) Warfarin Inactive Drug Do Not Use (Coumadin Inactive Drug Do Not Use) 5 Mg Tablet 5 MG PO ,,,FR,SA,CHACON (Reported) Warfarin Inactive Drug Do Not Use (Coumadin Inactive Drug Do Not Use) 2.5 Mg Tablet 2.5 MG PO Q SUNDAY (Reported) Current Inpatient Medications Current Medications Sodium Chloride 1,000 ml @ 80 mls/hr [id number] IV Last administered on 03/06/17t 22:03; Admin Dose 80 MLS/HR; Start 03/06/17 at 20:52; Stop 03/06/17 at 22:37; Status DC Senna 2 tablet BID PRN PO; Start 03/06/17 at 20:55 Al Hydrox/Mg Hydrox/Simethicone 30 ml Q6 PRN PO; Start 03/06/17 at 20:55 Polyethylene Glycol 17 gm 17 gm DAILY PRN PO; Start 03/06/17 at 20:55 Lidocaine HCl/ Dextrose [id number] mcg/Premix 500 ml @ 60 mls/hr Q8H20M IV Last administered on 03/08/17 10:53; Admin Dose 60 MLS/HR; Start 03/06/17 at 21:35 Sodium Chloride 1,000 ml @ 60 mls/hr [id number] IV; Start 03/06/17 at 22:34; Stop 03/07/17 at 15:13; Status DC Pharmacy Consult 1 ea DAILY@17 XX; Start 03/07/17 at 17:00 Atorvastatin Calcium 40 mg HS PO; Start 03/08/17 at 21:00 Bumetanide 3 mg DAILY PO Last administered on 03/08/17 13:06; Admin Dose 3 MG; Start 03/08/17 at 12:00 Metoprolol Succinate 200 mg DAILY PO Last administered on 03/08/17 13:07; Admin Dose 200 MG; Start 03/08/17 at 12:00 Tamsulosin HCl 0.4 mg DAILY PO Last administered on 03/08/17 13:07; Admin Dose 0.4 MG; Start 03/08/17 at 12:05 Mexiletine HCl 200 mg TIDWM PO; Start 03/08/17 at 12:05; Stop 03/08/17 at 12:54 ; Status DC Mexiletine HCl 150 mg TID PO Last administered on 03/08/17 13:07; Admin Dose 150 MG; Start 03/08/17 at 12:54 Allergies: Coded Allergies: Sulfa (Sulfonamide Antibiotics) (Verified Allergy, Severe, 01/31/12) allopurinol (Unverified Allergy, Unknown, RASH - DIFFUSE, 08/03/13) Uncoded Allergies: PENICILLIN (Allergy, 08/03/13) Social History Hx Alcohol Use: NoHx Substance Use: NoHx Tobacco Use: Yes (smoked for 40 years) Smoking Status: Former Smoker Years of Smokin Living Arrangement: with Family Exam Vital Signs Vital Sign - Last Date Time Temp Pulse Resp B/P Pulse Ox O2 Delivery O2 Flow Rate FiO2 03/08/17 08:45 Supplement Oxygen 03/08/17 08:45 36.6 60 15 124/59 94 2.00 Intake and Output 03/07/17 03/07/17 03/08/17 Cumulative From/Thru 15:00 23:00 07:00 03/06/17 18:26 - 03/08/17 06:08 Intake Total 1146 ml 422 ml 2211 ml Output Total 1150 ml 1400 ml 3400 ml Balance -4 ml -978 ml -1189 ml Intake Oral 360 ml 250 ml 710 ml IV Total 786 ml 172 ml 1501 ml Output Urine Total 1150 ml 1400 ml 3400 ml # Voids 4 4 # Bowel Movements 0 0 Lab and Diagnostics Result Diagram: 03/08/175 03/08/17314 Assessment & Plan Assessment This is a 67-year-old male with past medical history significant for CABG in 1999, ischemic cardiomyopathy, atrial fibrillation s/p AV node ablation and biventricular ICD placement on chronic anticoagulation with warfarin who presents to the ER after contacting Dr Fields for dyspnea, hypotension and tachycardia. Wide-complex ventricular tachycardia, present on admission, resolving. With the monomorphic nature of the ventricular tachycardia this most likely due to myocardial scaring rather than ischemia. No cardiac catheterization warrented at this time due to his CKD. - Cardioversion was unsuccessful with reversion to ventricular tachycardia. - Amiodarone was unsuccessful at cardioversion. Patient states he was on it on the past and this may have caused kidney damage. - Lidocaine discontinued. - Restart home medications of mexiletine and metoprolol. Hospital doesn't have mexiletine 200mg so will start 150mg TID. Will increase metoprolol succinate from 50mg to 200mg daily. - Echocardiogram in progress. Last one done in 2013. Acute on Chronic kidney disease, present admission, resolving. Patient's baseline creatinine is appears to be around 1.9-2.0. - On admission creatinine was 2.66 and BUN 71. Currently creatinine and BUN - Stop IV fluids. Patient is not NPO and tolerating oral feedings - Hold losartan and spironolactone in an attempt to avoid nephrotoxic medications will restart when ALYSON is resolved. Ischemic cardiomyopathy secondary to CAD status post bypass in 1999, present on admission, chronic. - Continue home medication of bumetanide 3mg bid. - Hold losartan 25 mg daily, and spironolactone 12.5 mg daily. Atrial fibrillation status post AV node ablation with biventricular ICD placement, present on admission, chronic. - Currently on warfarin for anticoagulation - 96% paced biventricularly as noted on interrogation on 02/19/17 Pain Evaluation: Adequate Pain Control VTE Prophylaxis: Theraputic Anticoag with Warfarin VTE Mechanical Devices: Intermittant Pneumatic CD Resuscitation Status: CPR: Attempt Resuscitation Exam Vital Signs Vital Sign - Last Date Time Temp Pulse Resp B/P Pulse Ox O2 Delivery O2 Flow Rate FiO2 03/08/17 08:45 Supplement Oxygen 03/08/17 08:45 36.6 60 15 124/59 94 2.00 Intake and Output 03/07/17 03/07/17 03/08/17 Cumulative From/Thru 15:00 23:00 07:00 03/06/17 18:26 - 03/08/17 06:08 Intake Total 1146 ml 422 ml 2211 ml Output Total 1150 ml 1400 ml 3400 ml Balance -4 ml -978 ml -1189 ml Intake Oral 360 ml 250 ml 710 ml IV Total 786 ml 172 ml 1501 ml Output Urine Total 1150 ml 1400 ml 3400 ml # Voids 4 4 # Bowel Movements 0 0 General: Alert, Oriented X3, Cooperative Head: Normal Eyes: Scleral Anicteric Mouth: Mucous Membr Moist/[place] Chest & Lungs: Chest Wall Normal, Clear to auscultation & percussion Cardiovascular: Normal S1, Normal S2, No Murmurs/Rubs/Gallops Pulses: NL carotid, radial, femoral, DP, PT, Carotid (no bruit), Post Tibial (1 /4 bilaterally) Abdomen: Non-tender, Non-distended Neurological: Grossly Neurologically Intact, Normal Speech Lab and Diagnostics Result Diagram: 03/08/1731403/08/17314 X-Rays, CTs and MRIs PROCEDURE: X-RAY CHEST ONE VIEW, PORTABLE ([id number]) IMPRESSION: Allowing for technique and in comparison to old films there is no acute disease seen in the semi-upright portable chest. Dictated by: Jared Houston M.D. on 03/06/2017 at 20:07 Approved by: Jared Houston M.D. on 03/06/2017 at 20:09 [facility] Mar 08, 2017 13:42 X-Rays, CTs and MRIs PROCEDURE: X-RAY CHEST ONE VIEW, PORTABLE ([id number])
--- NOTE | 2017-03-08 14:01 | PCM.PNMED ---
Subjective Date of Service Mar 08, 2017 Subjective Subjective: Patient states that overall he is feeling relatively well today. He continues with minor chest pain and discomfort. He also states that he would like to restart his tamsulosin due to difficulties urinating, which is increased over the last 1-2 days without his typical medications. Events Overnight: No acute events overnight. ROS: Minor Chest pain/discomfort. Denies fever/chills, nausea/vomiting, headache , weakness, abdominal pain, shortness of breath, increased swelling in hands or feet. Exam Vital Signs Vital Sign - Last Date Time Temp Pulse Resp B/P Pulse Ox O2 Delivery O2 Flow Rate FiO2 03/08/17 08:45 Supplement Oxygen 03/08/17 08:45 36.6 60 15 124/59 94 2.00 Intake and Output 03/07/17 03/07/17 03/08/17 Cumulative From/Thru 15:00 23:00 07:00 03/06/17 18:26 - 03/08/17 06:08 Intake Total 1146 ml 422 ml 2211 ml Output Total 1150 ml 1400 ml 3400 ml Balance -4 ml -978 ml -1189 ml Intake Oral 360 ml 250 ml 710 ml IV Total 786 ml 172 ml 1501 ml Output Urine Total 1150 ml 1400 ml 3400 ml # Voids 4 4 # Bowel Movements 0 0 Exam General: No acute distress, well-developed, well-nourished Head: Normocephalic, atraumatic. External ears without defect. Eyes: Pupils equal, round, and reactive to light and accommodation. Anicteric sclerae, moist conjunctivae. Neck: Normal range of motion, no lymphadenopathy noted Cardiovascular: Bradycardic with regular rhyth, no murmurs, rubs, or gallops appreciated Pulmonary: Clear to auscultation bilaterally with no crackles, wheezes, or rhonchi. Normal respiratory effort with no use of accessory muscles. Abdomen: Bowel tones present. Soft, nontender, nondistended. Extremities: No clubbing, cyanosis, edema Skin: Normal temperature, turgor, and texture; no rash, ulcers, or subcutaneous nodules appreciated. Neurological: Cranial nerves grossly intact. Reflexes, coordination, and sensory function within normal limits. Normal muscle strength, tone, and bulk. Psychiatric: Normal mood and affect. Alert and oriented to person, place, and time IVs and Medications IV Fluids 500 mL normal saline delivered with IV medications. Medications Reviewed: Medications were reviewed in detail Lab and Diagnostics Result Diagram: 03/08/1731403/08/17314 X-Rays, CTs and MRIs X-RAY CHEST ONE VIEW, PORTABLE ([id number]) IMPRESSION: Allowing for technique and in comparison to old films there is no acute disease seen in the semi-upright portable chest. Dictated by: Jared Houston M.D. on 03/06/2017 at 20:07 Approved by: Jared Houston M.D. on 03/06/2017 at 20:09 12-lead ECG Wide-complex ventricular tachycardia at a rate of 143 with right bundle branch block Cardiac Echo Impressions Echocardiogram Report Interpretation Summary The left ventricle is severely dilated. There is mild concentric left ventricular hypertrophy. The ejection fraction is estimated to be 25-30%. There is akinesis of the mid and distal anterior wall with dyskinesis of the apex. The distal inferior wall is akinetic as well as the mid and distal septum. Since the prior exam from 08/04/2013, the LV has dilated and the mid and distal inferior wall shows worsened contractility. In comparison to the exam from 09/19/2012, the contractility looks the same or better. Reading Physician:11:05 AM Assessment & Plan Angel Abebe is 67-year-old male with past medical history significant for one- vessel bypass in 1999, ischemic cardiomyopathy, recurrent ventricular tachycardia, atrial fibrillation status post AV node ablation and biventricular ICD placement on chronic anticoagulation with warfarin who presents to the ER per Dr. Fields due to ventricular tachycardia and hyportension. Wide-complex ventricular tachycardia, present on admission, active. Patient has remained normal sinus on 4 mg/m lidocaine infusion. As the patient is up and about in the room at times V. tach resumes however converts back to normal sinus within 5-7 beats. - Pacer pads placed and to remain on patient. - Admitted to ICU for close monitoring. - Cardiology restarted mexiletine, bumetanide, metoprolol, continue to hold losartan and spironolactone - No catheterization planned at this time. - Troponins remain negative Chronic kidney disease stage IV, present admission, active. In review of outpatient records it appears the patient baseline creatinine is around 1.9-2.0. - Creatinine trending down. - Continue to follow - We will attempt to avoid nephrotoxic medications. Metabolic acidosis, present on admission, resolving Likely due to renal insufficiency -Continue to monitor Ischemic cardiomyopathy secondary to CAD status post bypass in 1999, present on admission, chronic. Patient has stable moderately severe left ventricular systolic dysfunction per Dr. Fields who he closely follows with. - Cardiology restarted mexiletine, bumetanide, metoprolol, continue to hold losartan and spironolactone Atrial fibrillation status post AV node ablation with biventricular ICD placement, present on admission, chronic. - Anticoagulated with warfarin. INR on presentation was 2.28. - Continue warfarin. - Continue to monitor Coronary artery disease, present on admission, chronic. - Status post 1 vessel bypass (1999) - Home regimen of simvastatin 40 mg nightly held. BPH, present on admission, chronic. - Due to tenuous blood pressures home regimen of Flomax 0.4 mg daily held. PRN Medications - Acetaminophen as needed for mild pain/fever/headache - Bowel regimen as needed Disposition: Continue to monitor, expected length of stay 1-2 days with discharge home. GI Prophylaxis: Not indicated VTE Prophylaxis: Theraputic Anticoag with Warfarin VTE Mechanical Devices: Intermittant Pneumatic CD Resuscitation Status: CPR: Attempt Resuscitation Time spent 30 minutes Attending Statement I have seen and evaluated the patient at bedside in addition to directly supervising care provided by Dr Medina on 03/08/2017. I agree with above documentation. Jose Medina DO Mar 08, 2017 14:01 Jose Singh DO Mar 09, 2017 07:27 Jose Medina DO Mar 08, 2017 14:01
--- NOTE | 2017-03-08 15:19 | CONS ---
[address] [address] CONSULTATION REPORT PATIENT: NORMA KAUR : 1950 MR#: [id number] ADMIT: 03/06/2017 JOB ID: [id number] DATE OF SERVICE: 03/08/2017 CARDIOLOGY CONSULTATION: CHIEF COMPLAINT: Severe dizziness and weakness. HISTORY OF PRESENT ILLNESS: The patient is a complex 67-year-old man with a history of large anterior infarct, coronary artery bypass graft surgery, chronic AFib, AV junction ablation and biventricular ICD implanted for primary prevention of sudden . He has had ICD discharges before. His device was programmed to deliver discharges if rate exceeds 166 beats per minute. The patient showed up in the emergency department in slow VT at a rate of 146 beats per minute. His symptoms included shortness of breath and intermittent dizziness. Earlier on the day in question, he contacted his primary feller operator, Dr. Fields, complaining of feeling sluggish. His vital signs at home were abnormal, then showed heart rate of 140 beats per minute and blood pressure of 77/60. He pushed his device information through to clinic. Device information was reviewed by Dr. Fields and it showed basically a slow VT with a rate of 140 beats per minute and he was directed to go to the emergency department. His course in the emergency department was complicated. He received two doses of adenosine but it did not terminate the dysrhythmia. He received five DC cardioversions in the emergency department, 120 joules each. He received two amiodarone 150 mg boluses with an amiodarone drip with no improvement whatsoever in his rhythm. Subsequently, he received two lidocaine injections 100 mg each, which restored normal sinus rhythm and then lidocaine drip was started at a rate of 1 mg/minute. He had brief episodes of nonsustained VT at night but was asymptomatic during those brief episodes. As a result, his lidocaine drip was increased to 2 mg/minute with resolution of monitoring abnormalities. At this moment in time, the patient has no complaints. PAST MEDICAL HISTORY: 1. 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 2. Chronic AFib status post AV junction ablation and biventricular ICD. Of note, his coronary sinus was occluded so could not place his coronary sinus lead. As a result, in 2006, he had left ventricular epicardial lead placed as well as shock lead in the RV. 3. Ischemic cardiomyopathy-most recent ejection fraction as of May 2014 was 25%-30% with a mid and distal anterior wall akinesis, apical dyskinesis, distal inferior akinesis and mid and distal septum akinesis. 4. Coronary artery bypass graft surgery. His surgical anatomy is vein graft to LAD, vein graft to OM, vein graft to OM-2, and vein graft to PDA. The patient also had mitral valve repair with a 30 mm Kaycee annuloplasty. I read Dr. Gauthier operative report and it is not clear to me exactly why ACEVEDO was not harvested. I will have to check with Dr. Fields to find out. 5. History of ventricular tachycardia in October 2007 with appropriate resuscitation in the past by his ICD. Unfortunately amiodarone was associated with abnormal pulmonary function tests. So, he has been on lidocaine as a result. 6. Hyperlipidemia. 7. Stage 4 chronic kidney disease. Baseline creatinine fluctuates between 1.6 up to 2.8. 8. Hyperlipidemia-controlled. SOCIAL HISTORY: The patient is a former smoker with a 25 pack year history of smoking. FAMILY HISTORY: Brother with diabetes. Father with coronary artery disease, premature in his 40s, which was the cause of . ALLERGIES: 1. AMIODARONE which caused abnormal pulmonary function test. 2. 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 3. PROCAINAMIDE. 4. SULFANILAMIDE. REVIEW OF SYSTEMS: Dizziness, weakness, sluggishness. No chest pain. No shortness of breath. Otherwise, 10 point review of systems is negative. PHYSICAL EXAMINATION: Very pleasant, elderly man, sitting in bed, in no apparent distress. Eyes: No scleral icterus. Neck: Supple. No lymphadenopathy. No carotid bruits. There is evidence of jugular venous distention even when he is sitting at a 60 degrees angle. Heart normal S1, S2. There is a 1/6 systolic ejection murmur at right upper sternal border. Lungs are clear to auscultation anteriorly. Abdomen: Soft, positive bowel sounds. No hepatosplenomegaly. Extremities: Warm, well perfused. No clubbing, cyanosis or edema. Skin: No rashes or lesions. LABORATORY AND RADIOLOGY REVIEW: CBC shows mild anemia, hematocrit is 35%. Platelet count is stable at 131. Creatinine this morning is 1.6, was 2.7 on admission. Electrolytes are normal. Of note, potassium on admission was 4.4, magnesium on admission was 2.5. Troponin T is negative x2 despite five ICD discharges and TSH is normal. EKG is uninterpretable due to chronic biventricular pacing. QRS complexes demonstrate right bundle branch blockish morphology. Echocardiogram is ordered and is pending. ASSESSMENT AND PLAN: 1. This is a complex man comes in with sustained slow VT, no obvious triggers present. His management is complicated by adverse reaction to amiodarone in the past which resulted in abnormal pulmonary function test. The patient says that he has been 100% compliant with his antiarrhythmics including Toprol-XL 25 mg tablets, 2 tablets daily and mexiletine 200 mg tablets, one tablet by mouth every 8 hours. Unfortunately even though his electrolytes were normal and he has been compliant with medical therapy, he still had this severe life-threatening problem. PLAN: Device management: David from [facility] came over and I appreciate his expertise. I reprogrammed the patient's device so now he has a VT therapy zone where four cycles of ATP will be delivered before ICD shock is delivered. His VT zone is from 140 beats per minute up to 166 beats per minute. VF zone, one ATP will be attempted followed by an ICD discharge. Medication management for VT: I would like to escalate his Toprol-XL from 50 mg daily up to 200 mg daily and we will initiate this medication today. Today we will attempt to wean off the lidocaine drip and start him on mexiletine. Unfortunately our hospital does not have 200 mg capsules so will restart 150 mg capsules that are available here. 2. Renal insufficiency: We will temporarily hold his losartan. We will start his Bumex albeit at a lower dose. At home he takes 2 mg twice a day. Carl give him just 3 mg once a day. We will also hold his spironolactone because of soft blood pressure, but today we have the option to reinitiate this medication. 3. Ischemic evaluation: Given stage 4 chronic kidney disease, I believe ischemic evaluation, the risk is prohibitive. 4. Lead management: According to the operative note, the patient has a biventricular ICD implanted by Dr. Nobles with RV lead and coronary sinus lead. His most recent generator change was October 04, 2012. Unfortunately I do not really see the coronary sinus lead on the chest x-ray and I am a little bit confused about the coronary sinus lead. I am also confused by Dr. Nobles's operative report. It says the coronary sinus was occluded. Yet it says [place] leads were placed after coronary sinus venography. I will have to research this a little bit more. Thank you very much for the opportunity to evaluate this patient.
[2017-03-08 16:30] VITALS: BP 131/63; PULSE 60; RESP 15; O2SAT 94
--- NOTE | 2017-03-08 18:30 | NUR ---
BP PO metoprolol, mexilil, flomax. and bumex started. IV Lidocaine gtt turned off at 1400 one hour after PO meds given. EHCO completed with 25-30% EF. Pt informed that he is not going to manager cardiac cath and will be sent home with new meds, diet restarted.
[2017-03-08 19:55] VITALS: BP 127/54; PULSE 60; RESP 14; O2SAT 98
[2017-03-08 23:07] VITALS: BP 110/51; PULSE 60; RESP 19; O2SAT 95
[2017-03-09] VITALS (7 sets, daily range): BP systolic 93–116; BP diastolic 47–62; PULSE 56–62; RESP 16–26; O2SAT 93–96
--- NOTE | 2017-03-09 03:53 | NUR ---
Cardiac Patient rested well this shift, up a few times to void in urinal, no distress noted and denied any chest pain while getting up, sat in chair for about an hour yesterday evening and tolerated well. HR 100% V paced and one 4 beat run of v-tach noted this shift at 0329, patient asymptomatic from V-tach, pleasant and cooperative this shift, awaiting AM lab results. Addendum: 03/09/17 at 0359 by HASMUKH SETH RN Amended: Links added.
[2017-03-09 04:24] LABS: Mean Corpuscular Hemoglobin 31.4 pg (27.0-35.0); Mean Corpuscular Volume 98.5 fL (81-100)
[2017-03-09 04:43] LABS: INR 2.15 ratio
[2017-03-09] MEDS: MeTOProlol XL 50 mg ER24 Tablet PO SCH (07:50)
--- NOTE | 2017-03-09 07:59 | NUR ---
Vtach 7 and 11 beats of Vtach this am, asymptomatic. Notified , gave scheduled PO cardiac meds early.
--- NOTE | 2017-03-09 10:08 | NUR ---
NUTRITION FOLLOW-UP: ASSESS: Pt is a 67 YO male admitted to CCU with sustained, slow V tach and renal insufficiency. His management is complicated by adverse reaction to amiodarone in the past which resulted in abnormal pulmonary function test. Even though his electrolytes are normal, and he has been compliant with medical therapy, he still had this severe, life-threatening problem. Plan is for biventricular ICD device management, medication management, and renal consultation. Surgery is not recommended at this time. Patient was downgraded to PCU status this morning. PMHX: Afib, CABG, ischemic cardiomyopathy, HLD, HTN, CKD stg IV. LABS: Reviewed. BUN 43, Cr 1.44, Glu 124, Alb 3.5. MEDS:Reviewed. Coumadin. GI: No bowel movement recorded. SKIN: No major issues noted. WT: 117.0 kg, BMI 34.0 kg/m2, IBW: 80.9kg. Admission weight: 117.9 kg. DIET: Heart healthy x 1 D. PO intake 75% x 1 tray. EST. NEEDS: BMI Kcals: 2360-2595kcal/day (20-22kcal/kg) Pro: 95-120g/day (1.2-1.5g/kg IBW) NUTRITION DIAGNOSIS: 1) Inadequate oral intake related to decreased ability to consume sufficient energy as evidenced by current NPO status - RESOLVED. NUTRITION INTERVENTION: 1) No intervention at this time. MONITOR / EVAL: PO intake, GI, wt, labs, POC, nutrition status. Will continue to monitor per moderate nutrition risk guidelines.
--- NOTE | 2017-03-09 13:09 | DRSVH ---
[facility] [address] [address] [place] [address] Echocardiogram Report Name: NORMA KAUR LStudy Toan e: 03/08/2017 Height: 72 in Hospital Exam Location: [facility] Weight: 259 lb Gender: Male BSA: 2.4 m2 : 1950 Age: 67 yrs BP: 124/59 mmHg Reason For Study: V-Tach Ordering Physician: Prince Jaeger Performed By: Tiffanie Ruby Referring Physician: PRINCE JAEGER Interpretation Summary The left ventricle is moderate-severely dilated but is unchanged in size compared to the previous study. Left ventricular systolic function is severely reduced with the ejection fraction visually estimated to be 20-25% with a significant dyssynchronous contraction pattern due to the paced rhythm with severe global hypokinesis that appears worse in the mid and distal anterior wall and septum extending to the apex. There are no other obvious focal wall motion abnormalities noted but poor endocardial definition reduces the sensitivity for the detection of such. There has been no obvious change compared to the previous study. The right ventricle is not well visualized but grossly appears normal in size with probable normal systolic function, and is likely unchanged compared to the previous study. The right ventricular systolic pressure is estimated at 55 mmHg assuming a right atrial pressure of 15 mm Hg, and is likely similar compared to the previous study. The left atrium is severely dilated and grossly unchanged in size since the prior echo exam. Right atrial size is normal and has mildly decreased in size since the prior echo exam. The mitral valve has been surgically repaired and an annuloplasty ring sewn in place with a mitral valve mean gradient of only 3 mmHg which is lower compared to the previous study and only trace mitral regurgitation. There is mild tricuspid regurgitation that is unchanged compared to the previous study. There is no other significant valvular heart disease. Procedure: A two-dimensional transthoracic echocardiogram with color flow and Doppler was performed. The study quality was technically difficult. A contrast injection of Definity was performed to improve assessment of LV function. Comparison is made with the echocardiogram of 05/19/2014. The patient has a paced rhythm. Left Ventricle: The left ventricle is moderate-severely dilated. This is unchanged compared to the previous study. There is mild concentric left ventricular hypertrophy. The left ventricle is not well visualized. Left ventricular systolic function is severely reduced. The ejection fraction is estimated to be 20-25%. There is a significant dyssynchronous contraction pattern due to the paced rhythm. There is severe global hypokinesis of the left ventricle. This appears worse in the mid and distal anterior wall and septum extending to the apex. There are no other obvious focal wall motion abnormalities noted but poor endocardial definition reduces the sensitivity for the detection of such. Diastolic function could not be accurately assessed due to paced rhythm. This is no obvious change compared to the previous study. Right Ventricle: There is a pacemaker lead in the right ventricle. The right ventricle is not well visualized. The right ventricle grossly appears normal in size with probable normal systolic function. This is likely unchanged compared to the previous study. Atria: The left atrium is severely dilated. The left atrium has remained unchanged in size since the prior echo exam. Right atrial size is normal. The right atrium has mildly decreased in size since the prior echo exam. The interatrial septum is intact with no evidence for an atrial septal defect. Mitral Valve: The mitral valve has been surgically repaired and an annuloplasty ring sewn in place. No significant mitral valve stenosis. The mitral valve mean gradient is 3 mmHg. This is lower compared to the previous study. There is trace mitral regurgitation. There has been no significant change since the previous study. Aortic Valve: The aortic valve is not well visualized. The aortic valve is grossly normal. The aortic valve opens well. No aortic regurgitation is present. Tricuspid Valve: The tricuspid valve is not well visualized, but is grossly normal. There is mild tricuspid regurgitation. This is unchanged compared to the previous study. The right ventricular systolic pressure is estimated at 55 mmHg assuming a right atrial pressure of 15 mm Hg. This is likely similar compared to the previous study. Pulmonic Valve: The pulmonic valve is not well seen, but is grossly normal. There is trace pulmonic regurgitation. There is no other significant valvular heart disease. Great Vessels: The aortic root is normal size. The ascending aorta could not be visualized. The IVC is dilated (diameter is greater than 2.1 cm) and it collapses less than 50% with a sniff. This suggests a high right atrial pressure of 15 mm Hg. Pericardium/ Pleura There is no pericardial effusion. There is an anterior echo-free space consistent with a fat pad. There is no pleural effusion. MMode/2D Measurements & Calculations LVIDd: 6.7 cm RA long axis LVOT diam LVIDs: 5.6 cm LA A2 area: 38.0 cm : 2.6 cm FS: 15.9 % LA A4 area: 31.0 cm RA area IVSd: 1.1 cm LA length (vol): 7.0 cm LVPWd: 1.0 cm LA vol: 142.8 ml : 17.9 cm RA vol: 46.8 ml LA vol index: 60.1 ml/m RA IVC diam: 3.2 cm : 19.7 mm2 LV pelaez. diameter/BSA LV sys. diameter/BSA TAPSE: 1.6 cm (cm/m^2): 2.8 (cm/m^2): 2.4 Doppler Measurements & Calculations Ao V2 max MVA(VTI) TR max tal MV V2 mean: 66.3 cm/sec : 112.5 cm/sec : 2.7 cm2 : 314.5 cm/sec MV mean P.7 mmHg Ao max P.1 mmHg TR max PG MV V2 VTI: 39.9 cm Ao mean PG : 39.7 mmHg PA V2 max LVOT Max Tal : 62.3 cm/sec : 109.7 cm/sec PA mean PG ESTRELLITA(I,D): 4.8 cm : 0.72 mmHg sev ratio: 0.93 Ao V2 mean LV V1 max PG PA V2 mean ESTRELLITA indexed to BSA : 79.7 cm/sec : 40.8 cm/sec (cm^2/m^2): 2.0 Ao V2 VTI: 22.5 cm LV V1 VTI PA pr(Accel) : 21.0 cm : 34.1 mmHg ESTRELLITA(V,D): 5.0 cm2 Reading Physician:01:08 PM
[2017-03-09] MEDS: LIDOCAINE 2 GM/500 ML IV SCH ×2 (13:10→19:36)
[2017-03-09] MEDS: D5W IV SCH ×2 (13:10→19:36)
--- NOTE | 2017-03-09 13:13 | NUR ---
Social Work: Readiness for Discharge/Multidisciplinary Rounds D: Per EMR review, pt is on day 3 of hospitalization for V Tach, renal insufficiency. Pt has been downgraded to PCC status. Pt discussed in multidisciplinary rounds, pt is likely to discharge home in 1-2 days after cardiology clearance. Pt is I at baseline. No concerns related to capacity for self-care. Pt likely to d/c home with to transport via POV. No anticipated d/c needs. SW will follow. A: pt who is I at baseline. P: Pt likely to d/c home with to transport via POV. No anticipated d/c needs. SW will follow. Liza Estrada [employer]
--- NOTE | 2017-03-09 16:06 | NUR ---
Home med Pt had several beats of vtach. Notified and . Home Mexitil 200mg brought in by and gave to pharmacy. Administered home dose at 1230 instead of 1430 per r/t 26 beats. Asymptomatic.
--- NOTE | 2017-03-09 17:11 | PCM.PNMED ---
Subjective Date of Service Mar 09, 2017 Subjective Subjective: Patient states that he is currently feeling well. When I walked in the room the patient was on 2 L of oxygen per nasal cannula. Patient stated that he was not short of breath and he was saturated at 96% the nasal cannula was subsequently removed. Patient states it is currently satisfied to follow other aspects of his care. Tamsulosin was restarted yesterday to his relief. Events Overnight: No acute events overnight. ROS: Denies fever/chills, nausea/vomiting, headache, weakness, abdominal pain, chest pain, shortness of breath, increased swelling in hands or feet. Exam Vital Signs Vital Sign - Last Date Time Temp Pulse Resp B/P Pulse Ox O2 Delivery O2 Flow Rate FiO2 03/09/17 16:45 36.6 56 24 103/57 93 Room Air 03/09/17 08:00 2.00 Intake and Output 03/08/17 03/08/17 03/09/17 Cumulative From/Thru 15:00 23:00 07:00 03/06/17 18:26 - 03/09/17 05:17 Intake Total 924 ml 480 ml 3615 ml Output Total 1500 ml 1575 ml 6475 ml Balance -576 ml -1095 ml -2860 ml Intake Oral 480 ml 480 ml 1670 ml IV Total 444 ml 1945 ml Output Urine Total 1500 ml 1575 ml 6475 ml # Voids 4 # Bowel Movements 0 0 Exam General: No acute distress, well-developed, well-nourished Head: Normocephalic, atraumatic. External ears without defect. Eyes: Pupils equal, round, and reactive to light and accommodation. Anicteric sclerae, moist conjunctivae. Neck: Normal range of motion, no lymphadenopathy noted Cardiovascular: Regular rate and rhythm with no murmurs, rubs, or gallops appreciated Pulmonary: Clear to auscultation bilaterally with no crackles, wheezes, or rhonchi. Normal respiratory effort with no use of accessory muscles. Abdomen: Bowel tones present. Soft, nontender, nondistended. Extremities: No clubbing, cyanosis, edema Skin: Normal temperature, turgor, and texture; no rash, ulcers, or subcutaneous nodules appreciated. Neurological: Cranial nerves grossly intact. Reflexes, coordination, and sensory function within normal limits. Normal muscle strength, tone, and bulk. Psychiatric: Normal mood and affect. Alert and oriented to person, place, and time IVs and Medications Medications Reviewed: Medications were reviewed in detail Lab and Diagnostics Result Diagram: 03/09/1739903/09/17399 X-Rays, CTs and MRIs X-RAY CHEST ONE VIEW, PORTABLE ([id number]) IMPRESSION: Allowing for technique and in comparison to old films there is no acute disease seen in the semi-upright portable chest. Dictated by: Jared Houston M.D. on 03/06/2017 at 20:07 Approved by: Jared Houston M.D. on 03/06/2017 at 20:09 12-lead ECG Wide-complex ventricular tachycardia at a rate of 143 with right bundle branch block Cardiac Echo Impressions Echocardiogram Report Interpretation Summary The left ventricle is severely dilated. There is mild concentric left ventricular hypertrophy. The ejection fraction is estimated to be 25-30%. There is akinesis of the mid and distal anterior wall with dyskinesis of the apex. The distal inferior wall is akinetic as well as the mid and distal septum. Since the prior exam from 08/04/2013, the LV has dilated and the mid and distal inferior wall shows worsened contractility. In comparison to the exam from 09/19/2012, the contractility looks the same or better. Reading Physician:11:05 AM Assessment & Plan Angel Abebe is 67-year-old male with past medical history significant for one- vessel bypass in 1999, ischemic cardiomyopathy, recurrent ventricular tachycardia, atrial fibrillation status post AV node ablation and biventricular ICD placement on chronic anticoagulation with warfarin who presents to the ER per Dr. Fields due to ventricular tachycardia and hyportension. Wide-complex ventricular tachycardia, present on admission, active. Patient continues to have asymptomatic ventricular tachycardia up to 30 beat runs which subsequently resolves to normal sinus. Implanted defibrillator has not shocked the patient as far as he is aware. - Pacer pads placed and to remain on patient. - Lidocaine drip has been discontinued for 24 hours - Cardiology restarted home dose mexiletine, bumetanide, metoprolol, continue to hold losartan and spironolactone - Trial patient on home meds for 24 hours before discharge home - No catheterization planned at this time. Chronic kidney disease stage IV, present admission, active. In review of outpatient records it appears the patient baseline creatinine is around 1.9-2.0. - Creatinine trending down. - Continue to follow - We will attempt to avoid nephrotoxic medications. Metabolic acidosis, present on admission, resolving Likely due to renal insufficiency -Continue to monitor Ischemic cardiomyopathy secondary to CAD status post bypass in 1999, present on admission, chronic. Patient has stable moderately severe left ventricular systolic dysfunction per Dr. Fields who he closely follows with. - Cardiology restarted mexiletine, bumetanide, metoprolol, continue to hold losartan and spironolactone Atrial fibrillation status post AV node ablation with biventricular ICD placement, present on admission, chronic. - Anticoagulated with warfarin. INR on presentation was 2.28. - Continue warfarin. - Continue to monitor Coronary artery disease, present on admission, chronic. - Status post 1 vessel bypass (1999) - Home regimen of simvastatin 40 mg nightly held. BPH, present on admission, chronic. - Flomax 0.4 mg restarted. PRN Medications - Acetaminophen as needed for mild pain/fever/headache - Bowel regimen as needed Disposition: Continue to monitor for the next 24 hours to ensure adequacy of medication regimen prior to discharge home. GI Prophylaxis: Not indicated VTE Prophylaxis: Theraputic Anticoag with Warfarin VTE Mechanical Devices: Intermittant Pneumatic CD Resuscitation Status: CPR: Attempt Resuscitation Time spent 25 minutes Attending Statement I have seen and evaluated the patient at bedside in addition to directly supervising care provided by resident physician. I agree with above documentation. Jose Medina DO Mar 09, 2017 17:11 Jose Singh DO Mar 10, 2017 07:50
--- NOTE | 2017-03-09 18:40 | NUR ---
VTACH Today: 13bt - 07:30 12bt - 07:47 11bt - 11:22 27bt - 11:53 paced out 28bt - 11:55 paced out 29bt - 11:58 paced out 16bt - 11:59 28bt - 14:19 paced out 12bt - 14:26 9bt - 14:33 10bt - 14:39 10bt - 17:14 8bt - 17:13 7bt - 18:31 RODDY Alston aware.
--- NOTE | 2017-03-09 19:00 | PROG NOTE ---
[address] [address] PROGRESS NOTE PATIENT: NORMA KAUR : 1950 MR#: [id number] ADMIT: 03/06/2017 JOB ID: [id number] DATE: 03/09/2017 CARDIOLOGY PROGRESS NOTE: CHIEF COMPLAINT: The patient came in with slow VT. He was complaining of intermittent dizziness. He was seen by Dr. Luke who adjusted his defibrillator to pace terminate somewhat slower VT rates. She kept his VF zone similar. He was placed on lidocaine drip with reasonable control, however he has been recently changed to a higher dose of metoprolol, as well as put back on his oral mexiletine. The patient continues to have mostly short salvos of VT, some that are longer, but apparently they are not symptomatic. PHYSICAL EXAMINATION: Shows a blood pressure 103/57, heart rate 56, and sats are 93% on room air. CURRENT MEDICATIONS: Include metoprolol succinate 200 mg daily, Bumex 3 mg daily, Lipitor 40 mg q.h.s., mexiletine 200 mg daily. LABORATORIES: Show a white count 7.3, H and H 10.8 and 33.9, platelets of 83,000. Chemistry shows sodium 138, potassium 4, chloride and bicarb 103 and 22 respectively, BUN and creatinine 43 and 1.44 which is improved in him compared to the admission creatinine. First troponin was negative. His proBNP is elevated at 11,341. Sodium was low, consistent with potential contribution of heart failure. His sodium has now normalized with diuresis. IMPRESSION: The patient is a rather complex gentleman with history of anterior myocardial infarction, a history of ventricular tachycardia with defibrillator. Per report he is unable to continue the amiodarone given abnormal pulmonary function tests. He has been on mexiletine and beta cynthia. Beta cynthia dose has now been increased. We will see how he does on the current doses of metoprolol and mexiletine. He continues to have mostly short salvos of VT. However, it is not clear that he is stable for discharge as yet. PLAN: Will continue to evaluate him. He may need up-titrate his beta cynthia dose, and if possible might even change him to b.i.d. if blood pressure tolerates. MTDD
[2017-03-10 03:31] LABS: Mean Corpuscular Hemoglobin 31.3 pg (27.0-35.0); Mean Corpuscular Volume 99.5 fL (81-100)
[2017-03-10 03:43] LABS: INR 1.72 ratio
[2017-03-10 04:13] VITALS: BP 110/63; PULSE 61; RESP 18; O2SAT 93
[2017-03-10 05:33] VITALS: PULSE 61
--- NOTE | 2017-03-10 05:35 | NUR ---
[facility] Pt had only one run of VT this night of approximately 15 beats. Pt asymptomatic. Home medication administered as scheduled. Pt slept well throughout the night. Addendum: 03/10/17 at 0646 by BAY KING RN Pt had a 28 beat run of VT at 0643 this morning. Passed information along to day RODDY.
[2017-03-10] MEDS: D5W IV SCH (06:47)
[2017-03-10] MEDS: LIDOCAINE 2 GM/500 ML IV SCH (06:47)
[2017-03-10 08:00] VITALS: BP 112/68; PULSE 60; RESP 16; O2SAT 94
[2017-03-10] MEDS: MeTOProlol XL 50 mg ER24 Tablet PO SCH (08:41)
[2017-03-10 08:55] VITALS: PULSE 60
[2017-03-10 13:04] VITALS: BP 119/72; PULSE 60; RESP 20; O2SAT 97
[2017-03-10] MEDS ORDERED: BUME1TAB4 PO (14:29)
--- NOTE | 2017-03-10 14:41 | PCM.DIMED ---
Jose Medina DO 03/10/17 1441: Discharge Instructions Date of Service Mar 10, 2017 Dates of Hospitalization Mar 06, 2017 at 20:06 Discharge Diagnosis Discharge Diagnosis Wide-complex ventricular tachycardia Chronic kidney disease stage IV Ischemic cardiomyopathy secondary to CAD status post bypass in 1999 Atrial fibrillation status post AV node ablation with biventricular ICD placement Coronary artery disease BPH Medication Instructions Additional med instructions Continue to take your home medications as previously prescribed except the following changes: Take bumetanide 3 mg daily Take metoprolol ER 50 mg daily Test Results Test Results No acute changes seen on chest x-ray Diet Discharge Diet: No restrictions Activity Discharge Activity: No restrictions Call your provider Call your provider for: Fever or Chills, Shortness of breath, Bleeding, Chest pain, Vomitting, Excessive diarrhea, Weakness (unilateral) Patient Instructions Patient Instructions During her stay here we have optimized her heart medications and we would like you to continue to take these as described above. Continue to avoid strenuous tasks until seen by cardiology. Follow-up plan Follow-up with cardiology within the next 1-[address] Sanders will contact Dr. Reyes to set up a follow-up appointment. Follow-up Provider: Jeremy Fields MD Follow-up with PCP in: Other Provider: Varinder Reyes MD Follow-up in: 2 weeks Jose Singh DO 03/11/17 0746: Discharge Instructions Attending's Statement Read and agree Jose Medina DO Mar 10, 2017 14:41 Jose Singh DO Mar 11, 2017 07:46
--- NOTE | 2017-03-10 15:06 | PROG NOTE ---
[address] [address] PROGRESS NOTE PATIENT: NORMA KAUR : 1950 MR#: [id number] ADMIT: 03/06/2017 JOB ID: [id number] DATE: 03/10/2017 CARDIOLOGY PROGRESS NOTE: CHIEF COMPLAINT: The patient came in with problems with slow ventricular tachycardia. Since he has been admitted he has had his treatments zones on his defibrillator adjusted for ventricular tachycardia. He has had his metoprolol dose increased. He has diuresed to some extent, but not a large amount. His creatinine has improved, suggesting improved efficiency of his heart function. Yesterday he had quite a few runs of ventricular tachycardia, many of them long, but ultimately pace terminated. Today he has had about four runs. Eventually when it gets long enough the pacer does kick in and pace terminate. The rates of these ventricular tachycardias are in the range of 150 beats per minute. I have just asked him to walk around and he says he feels 100 times better than he did yesterday. He denies any problems with chest pain, shortness of breath, orthopnea, or PND. He did have some lower extremity weeks ago but this resolved and it only recurred slightly, but he states that is likely related to venous insufficiency as he has not been wearing his compression stockings. PHYSICAL EXAMINATION: Blood pressure 119/72, heart rate 60, afebrile, sats are 97% on room air. General: In no acute distress. Speaking in full sentences, without apparent shortness of breath. Head: Normocephalic, atraumatic. Neck: Possible JV pulsations appreciated on the right. Heart: Regular rate and rhythm. Lungs: Clear. Abdomen: Soft. Extremities: Mild edema. LABORATORIES: Show a white count 6.8, H and H 11.4 and 36.2, platelets of 100,000 which is stable. Chemistry today shows sodium 140, potassium 4.1, chloride and bicarb 104 and 24 respectively. BUN and creatinine 41 and 1.43; this is decreased from 68 and 2.38. LFTs within normal limits. CURRENT MEDICATIONS: Include: 1. Mexiletine 200 mg t.i.d. 2. Bumex 3 mg daily. This is decreased from his 3 mg b.i.d. dosing. 3. Tamsulosin 0.4 mg daily. 4. Metoprolol succinate 200 mg daily. 5. Atorvastatin 40 mg q.h.s. IMPRESSION: The patient has a history of ischemic cardiomyopathy, history of defibrillator, history of slow ventricular tachycardia that was unlikely being treated and likely led to his admission. He is now doing better on higher doses of metoprolol. He has diuresed to some extent. He is doing well with lower doses of diuretics at this juncture and feels great. He still has ventricular tachycardia, but when the runs get long he appropriately pace terminates. PLANS: 1. I would continue with the medications at the current doses. I have asked him to weigh himself daily and make sure he continues with a low-sodium diet. 2. As this is a complex problem, I am going to discuss his case with Dr. Reyes to see if there are any other programming changes or medication make changes we could make in this gentleman. 3. We will get him followup in the next 1-2 weeks with one of one of our providers, Amy Young, or myself, or one our mid levels within the next couple weeks. I spoke with the patient about the current findings. I told him he is still having some ventricular tachycardia and he needs to contact our office or go to the ER if he develops any recurrent/concerning symptoms. MELANIA
--- NOTE | 2017-03-10 15:35 | NUR ---
Social Work: Readiness for Discharge/Multidisciplinary Rounds D: EMR reviewed. Pt is on day 4 of hospitalization. Pt discussed in multidisciplinary rounds and is medically stable to discharge home today with family via POV pending Cardiology. No SW needs identified at this time, no MD orders received. SW will continue to follow until time of discharge. A: Pt who is independent at baseline P: Pt to discharge home with family via POV. No SW needs identified, no MD orders received. SW will continue to follow until time of discharge. RUBEN Wood
[2017-03-10] MEDS ORDERED: Etomidate 2 mg/mL 20 mL Inj IV ONE (16:08)
[2017-03-10] MEDS ORDERED: Ketamine 10 mg/mL 20 mL Inj ONE (16:08)
--- NOTE | 2017-03-10 16:25 | NUR ---
Social Work: Discharge D: EMR reviewed. Pt is on day 4 of hospitalization. Pt discussed in multidisciplinary rounds and is medically stable to discharge home today with family via POV pending Cardiology. No SW needs identified at this time, no MD orders received. A: Pt who is independent at baseline P: Pt to discharge home with family via POV. No SW needs identified, no MD orders received. RUBEN Wood
--- NOTE | 2017-03-10 17:04 | NUR ---
D/C Home.. Remains asymptomatic despite intermittent runs of VT this shift. VT is always self resolving. Has been up amb in room and in hallways and tolerates activity well. Seen by Dr Sanders and updated on pt's VT. D/C orders written and reviewed with pt and . D/C home accompanied by with belongings.
--- NOTE | 2017-03-10 20:09 | PCM.DC.MED ---
Discharge Summary Date of Service Mar 10, 2017 Dates of Hospitalization Date of Hospital Admission Mar 06, 2017 at 20:06 Date of Discharge: Mar 10, 2017 Providers: Admitting Physician: Milo Lopes MD Primary Care Physician: Nopfortunato Attending Physician: Jose Singh DO Diagnosis at Time of Discharge Diagnosis at Time of Discharge Wide-complex ventricular tachycardia Chronic kidney disease stage IV Ischemic cardiomyopathy secondary to CAD status post bypass in 1999 Atrial fibrillation status post AV node ablation with biventricular ICD placement Coronary artery disease BPH Consultations Cardiology: Dr. Sanders Procedures XRay, CTs & MRIs X-RAY CHEST ONE VIEW, PORTABLE ([id number]) IMPRESSION: Allowing for technique and in comparison to old films there is no acute disease seen in the semi-upright portable chest. Dictated by: Jared Houston M.D. on 03/06/2017 at 20:07 Approved by: Jared Houston M.D. on 03/06/2017 at 20:09 ECG 12 Lead Wide-complex ventricular tachycardia at a rate of 143 with right bundle branch block Cardiac Echo Impression Echocardiogram Report Interpretation Summary The left ventricle is severely dilated. There is mild concentric left ventricular hypertrophy. The ejection fraction is estimated to be 25-30%. There is akinesis of the mid and distal anterior wall with dyskinesis of the apex. The distal inferior wall is akinetic as well as the mid and distal septum. Since the prior exam from 08/04/2013, the LV has dilated and the mid and distal inferior wall shows worsened contractility. In comparison to the exam from 09/19/2012, the contractility looks the same or better. Reading Physician:11:05 AM Brief History Taken from H&P completed by Dr. Mccrary: This is [id number] male with past medical history significant for CABG x 4 point lay ira vessels in 1999, ischemic cardiomyopathy, atrial fibrillation s/p AV node ablation and biventricular ICD placement on chronic anticoagulation with warfarin who presents to the ER after contacting Dr Fields for dyspnea, hypotension and tachycardia. He was working in the yard and noticed he was more SOB than usual and slower moving than usual. He checked his blood pressure and found it to be in the 70s systolic with a heart rate of 140. He notified Dr. Fields who remotely interrogated his ICD and was seen to be in ventricular tachycardia. He states he was only having dyspnea and denies palpitation, chest pain, chest pressure, chest discomfort, dizziness or lightheadedness. In the ED he was found to be in ventricular tachycardia. Cardioversion was attempted 4 times and amiodarone was started. He remained in normal sinus rhythm for a short time and converted back to wide complex ventricular tachycardia. Amiodarone was then discontinued and Dr Renae ordered a lidocaine infusion. The patient is currently resting comfortably in bed. He denies dyspnea and continues to denies chest pain, chest discomfort, chest pressure, palpitations, dizziness or lightheadedness. Initial EKG in the ED showed wide complex ventricular tachycardia at a rate of 143. Interrogation of ICD on 02/19/17 showed pacing 96% and a single non sustained vetricular tachycardia lasting 10 seconds. patient's last echocardiogram was in 2013 and showed an EF of 25-30%. Review of CABG procedure notes shows he had saphenous vein to LAD, saphenous vein to OM1, saphenous vein to OM2, saphenous vein to PDA and mitral valve repair with 30mm michael annuloplasty [facility] Course Angel Abebe is 67-year-old male with past medical history significant for one- vessel bypass in 1999, ischemic cardiomyopathy, recurrent ventricular tachycardia, atrial fibrillation status post AV node ablation and biventricular ICD placement on chronic anticoagulation with warfarin who presents to the ER per Dr. Fields due to ventricular tachycardia and hyportension. Wide-complex ventricular tachycardia, present on admission, active. Patient continues to have asymptomatic ventricular tachycardia up to 30 beat runs which subsequently resolves to normal sinus. Implanted defibrillator has not shocked the patient as far as he is aware. - Pacer pads placed and to remain on patient. - Cardiology restarted home dose mexiletine, bumetanide, metoprolol - No catheterization planned at this time. Chronic kidney disease stage IV, present admission, active. In review of outpatient records it appears the patient baseline creatinine is around 1.9-2.0. - Creatinine trending down. - Continue to follow - We will attempt to avoid nephrotoxic medications. High anion gap Metabolic acidosis, present on admission, resolving Likely due to renal insufficiency -Continue to monitor Ischemic cardiomyopathy secondary to CAD status post bypass in 1999, present on admission, chronic. Patient has stable moderately severe left ventricular systolic dysfunction per Dr. Fields who he closely follows with. - Cardiology restarted mexiletine, bumetanide, metoprolol Atrial fibrillation status post AV node ablation with biventricular ICD placement, present on admission, chronic. - Anticoagulated with warfarin. INR on presentation was 2.28. - Continue warfarin. - Continue to monitor Coronary artery disease, present on admission, chronic. - Status post 1 vessel bypass (1999) - Home regimen of simvastatin 40 mg nightly held. BPH, present on admission, chronic. - Flomax 0.4 mg restarted. Exam Vital Signs (Last) Date Time Temp Pulse Resp B/P Pulse Ox O2 Delivery O2 Flow Rate FiO2 03/10/17 13:04 36.4 60 20 119/72 97 Room Air 03/09/17 08:00 2.00 Exam General: No acute distress, well-developed, well-nourished Head: Normocephalic, atraumatic. External ears without defect. Eyes: Pupils equal, round, and reactive to light and accommodation. Anicteric sclerae, moist conjunctivae. Neck: Normal range of motion, no lymphadenopathy noted Cardiovascular: Regular rate and rhythm with no murmurs, rubs, or gallops appreciated Pulmonary: Clear to auscultation bilaterally with no crackles, wheezes, or rhonchi. Normal respiratory effort with no use of accessory muscles. Abdomen: Bowel tones present. Soft, nontender, nondistended. Extremities: No clubbing, cyanosis, edema Skin: Normal temperature, turgor, and texture; no rash, ulcers, or subcutaneous nodules appreciated. Neurological: Cranial nerves grossly intact. Reflexes, coordination, and sensory function within normal limits. Normal muscle strength, tone, and bulk. Psychiatric: Normal mood and affect. Alert and oriented to person, place, and time Test 03/06/17 18:45 03/06/17 18:47 03/06/17 23:30 03/08/17 03:15 Thyroid Stimulating Hormone (TSH) 3.450uIU/mL (0.450-4.500) Neutrophils (%) (Auto) 68.3% (40-74) Lymphocytes (%) (Auto) 18.3% (14-46) Monocytes (%) (Auto) 10.7% (4-12) Eosinophils (%) (Auto) 2.1% (0-5) Basophils (%) (Auto) 0.3% (0-3) Pro-B-Type Natriuretic Peptide 82904bg/mL (0-376) Hold Mark Top Tube Received (Received) Urine Color Straw (YELLOW) Urine Appearance Hazy (CLEAR,HAZY) Urine pH 5.0 (5.0-8.0) Urine Specific [place] 1.015 (1.003-1.035) Urine Protein Negativemg/dL (NEG,TRACE) Urine Glucose (UA) Negativemg/dL (NEGATIVE) Urine Ketones Negativemg/dL (NEGATIVE) Urine Occult Blood Negative (NEGATIVE) Urine Nitrite Negative (NEGATIVE) Urine Bilirubin Negative (NEGATIVE) Urine Urobilinogen Normalmg/dL (NORMAL) Urine Leukocyte Esterase Negative (NEGATIVE) Urine RBC 0-2/hpf (0-2) Urine WBC 0-5/hpf (0-5) Urine Epithelial Cells Occasional/hpf (NONE-MOD) Urine Crystals None seen (NONE SEEN) Urine Bacteria Few/hpf (NONE-FEW) Urine Hyaline Casts 5/20/lpf (NONE) Urine Granular Casts None seen (NONE SEEN) Urine Waxy Casts None seen (NONE SEEN) Urine Red Blood Cell Casts None seen (NONE SEEN) Urine White Blood Cell Casts None seen (NONE SEEN) Urine Mucus Present (None Seen) Urine Trichomonas None seen (NONE SEEN) Urine Yeast None (NONE SEEN) Urinalysis Comment None Urine Culture Reflexed Not indicated Phosphorus Level 2.8mg/dL (2.5-4.9) Magnesium Level 2.4mg/dL (1.6-2.6) Troponin T 0.010ug/L (0.0-0.011) Test 03/10/17 03:08 White Blood Count 6.3th/mm3 (3.8-10.1) Red Blood Count 3.64mil/mm3 (4.40-5.80) Hemoglobin 11.4g/dL (13.8-17.2) Hematocrit 36.2% (41.0-50.0) Mean Corpuscular Volume 99.5fL (81-100) Mean Corpuscular Hemoglobin 31.3pg (27.0-35.0) Mean Corpuscular Hemoglobin Concent 31.5% (32.0-37.0) Red Cell Distribution Width 14.1% (12.3-15.4) Platelet Count 100bil/L (150-400) Prothrombin Time 18.6sec (8.1-12.5) Prothromb Time International Ratio 1.72ratio Sodium Level 140mEq/L (134-144) Potassium Level 4.1mEq/L (3.5-5.2) Chloride Level 104mEq/L (97-108) Carbon Dioxide Level 24mmol/L (18-29) Blood Urea Nitrogen 41mg/dL (8-27) Creatinine 1.43mg/dL (0.76-1.27) Estimat Glomerular Filtration Rate 52mL/min (>59) Glucose Level 117mg/dL (60-99) Calcium Level 8.8mg/dL (8.5-10.1) Total Bilirubin 0.5mg/dL (0.0-1.2) Aspartate Amino Transf (AST/SGOT) 17U/L (0-50) Alanine Aminotransferase (ALT/SGPT) 16U/L (0-44) Alkaline Phosphatase 113U/L (25-160) Total Protein 6.9g/dL (6.4-8.4) Albumin 3.4g/dL (3.4-5.0) Discharge Medications Discharge Medications Bumetanide (Bumetanide) 1 Mg Tablet 3 MG PO DAILY Prescribed by: JOSE AMADOR DO Ferrous Sulfate (Ferrous Sulfate) 325 Mg Tablet 325 MG PO BID (Reported) Metoprolol Succinate ER (Metoprolol Succinate ER) 50 Mg Tab.er.24h 50 MG PO QAM (Reported) Mexiletine HCl (Mexiletine HCl) 200 Mg Capsule 200 MG PO Q8 (Reported) Tamsulosin (Flomax) 0.4 Mg Capsule 0.4 MG PO DAILY (Reported) Warfarin Sodium (Warfarin Sodium) 5 Mg Tablet 5 MG PO DAILY (Reported) Miscellaneous Medications Ascorbic Acid (Vitamin C) 500 Mg Capsule.er 500 MG PO (Reported) Cholecalciferol (Vitamin D3) (Vitamin D3) 1,000 Unit Tab.chew 1,000 UNIT PO ( Reported) Febuxostat (Uloric) 40 Mg Tablet 40 MG PO (Reported) Losartan Potassium (Losartan Potassium) 25 Mg Tablet 25 MG PO (Reported) Additional med instructions Continue to take your home medications as previously prescribed except the following changes: Take bumetanide 3 mg daily Take metoprolol ER 50 mg daily Followup Plan Disposition: Home Follow-up plan Follow-up with cardiology within the next 1-[address] Sanders will contact Dr. Reyes to set up a follow-up appointment. Discharge Diet: No restrictions Discharge Activity: No restrictions Patient Instructions During her stay here we have optimized her heart medications and we would like you to continue to take these as described above. Continue to avoid strenuous tasks until seen by cardiology. Follow-up Provider: Jeremy Fields MD Follow-up with PCP in: Other Provider: Varinder Reyes MD Follow-up in: 2 weeks Time spent Greater than 35 minutes spent on documentation and coordination of discharge. Attending Statement I have seen and evaluated this patient at bedside, in addition to directly supervising care provided by resident physician. I agree with Subjective history and assessment detailed above, correct medication list is detailed below which was discussed with patient prior to discharge and he is clear with recommendation: CURRENT MEDICATIONS: Include: 1. Mexiletine 200 mg t.i.d. 2. Bumex 3 mg daily. This is decreased from his 3 mg b.i.d. dosing. 3. Tamsulosin 0.4 mg daily. 4. Metoprolol succinate 200 mg daily. 5. Atorvastatin 40 mg q.h.s. Other noncardiac medications continued as previously prescribed. We greatly appreciate the consultation of Cardiology, below is detailed the assessment and plan of Dr Sanders prior to discharge: IMPRESSION: The patient has a history of ischemic cardiomyopathy, history of defibrillator, history of slow ventricular tachycardia that was unlikely being treated and likely led to his admission. He is now doing better on higher doses of metoprolol. He has diuresed to some extent. He is doing well with lower doses of diuretics at this juncture and feels great. He still has ventricular tachycardia, but when the runs get long he appropriately pace terminates. PLANS: 1. I would continue with the medications at the current doses. I have asked him to weigh himself daily and make sure he continues with a low-sodium diet. 2. As this is a complex problem, I am going to discuss his case with Dr. Reyes to see if there are any other programming changes or medication make changes we could make in this gentleman. 3. We will get him followup in the next 1-2 weeks with one of one of our providers, Drs. Diamond, Amy, or myself, or one our mid levels within the next couple weeks. IN addition, ICD settings were adjusted to better support patient's predisposition for a slow ventricular rhythm copies to: Jose Amador Adam J DO Mar 10, 2017 20:09 Jose Singh DO Mar 11, 2017 08:11
[2017-03-16] MEDS ORDERED: METO200T32 PO (13:43)
== END 2017-03-10 16:09 | disposition home or self-care (01) | DRG 309 ==
LOC: SED 18:08 → PCC 20:06 → OBSVTOIN 20:06 → CCU 20:19 → PCC 03-09 08:56
PROVIDERS: ADMIT Hospitalist; ATTEND Hospitalist
PROC: 5A2204Z Restoration of Cardiac Rhythm, Single (ICD-10-PCS; principal; 2017-03-06)
DX: I47.2 Ventricular tachycardia (principal); N18.4 Chronic kidney disease, stage 4 (severe); E87.2 Acidosis; I12.9 Hypertensive chronic kidney disease with stage 1 through stage 4 chronic kidney disease, or unspecified chronic kidney disease; I25.10 Atherosclerotic heart disease of native coronary artery without angina pectoris; I25.5 Ischemic cardiomyopathy; N40.0 Benign prostatic hyperplasia without lower urinary tract symptoms; Z79.01 Long term (current) use of anticoagulants; Z95.1 Presence of aortocoronary bypass graft; Z95.810 Presence of automatic (implantable) cardiac defibrillator; Z87.891 Personal history of nicotine dependence

== ENCOUNTER 2017-03-16 11:19 | Inpatient (IN) | payer MEDICARE, OTHER ==
[2017-03-16] VITALS (9 sets, daily range): BP systolic 88–131; BP diastolic 44–75; PULSE 60–88; RESP 16–18; O2SAT 93–100
[~2017-03-16] VITALS: Ht 182.9 cm; Wt 116.2 kg
[~2017-03-16 11:19] MED LIST changes: -ASCO250T6 PO; +ASCO500C6 PO; -BUM1 PO; +BUME1TAB4 PO; +CHOL10008 PO; -CHOL200035 PO; -COU25 PO; -COU5 PO; -COZ25 PO; -DOXE1CAP PO; +FERR-83 PO; -FES300 PO; -K10 PO; +LOSA25TA21 PO; -METO-271 PO; +METO-369 PO; +MEXI200C PO; -SIMV40TA5 PO; -SPIR25TA PO; -TAM4 PO; +TAMS0.4C98 PO; +WARF5TAB7 PO; -[UNRECOGNIZED DRUG - CODE] PO
--- NOTE | 2017-03-16 11:35 | ED.REPORT ---
HPI-Chest Pain 40 and Over Date of Service Mar 16, 2017 ED Provider: Mi Yoan Patient is a 67 year old male with a hx of HTN, DM, and CAD s/p CABGx4 on Coumadin who presents to the ED from Dr. Fields's office s/p his defibrillator going off around 0400 and 0945 this morning. Both episodes happened while sitting without recent exertion. He reports some lightheadedness just prior to the second discharge of his defibrillator. He denies chest pain, SOB, cough, sputum, dysuria, nausea, vomiting, diarrhea, fevers, chills, or any other symptoms. Per [facility] report, patients has had 18 episodes of VT since 03/14/17. ATP was administered 14 times, and he has been shocked a total of 4 times (once at 0426 this morning (36J) and three times at 0939 this morning (36J, 40J x2)). Patient was seen about a week ago and was experiencing sustained v-tach. He required 5 electrical cardioversions, amiodarone was given, and he ended up converting back into v-tach while on a lidocaine drip. His AICD threshold was lowered to 140 and his metoprolol dose was increased to 200mg. Nursing Notes Stated Complaint: HEART ISSUE/ SENT BY Chief Complaint: Chest Pain Nursing Notes Reviewed: Yes Allergies: Coded Allergies: Sulfa (Sulfonamide Antibiotics) (Verified Allergy, Severe, 01/31/12) allopurinol (Unverified Allergy, Unknown, RASH - DIFFUSE, 08/03/13) Uncoded Allergies: PENICILLIN (Allergy, Unknown, 03/16/17) Scheduled Ascorbic Acid (Vitamin C) 500 Mg Capsule.er 500 MG PO QAM Bumetanide (Bumetanide) 1 Mg Tablet 3 MG PO DAILY Cholecalciferol (Vitamin D3) (Vitamin D3) 1,000 Unit Tab.chew 2,000 UNIT PO QPM Febuxostat (Uloric) 40 Mg Tablet 40 MG PO QAM Ferrous Sulfate (Ferrous Sulfate) 325 Mg Tablet 325 MG PO BID Losartan Potassium (Losartan Potassium) 25 Mg Tablet 25 MG PO QAM Metoprolol Succinate ER (Metoprolol Succinate ER) 200 Mg Tab.er.24h 200 MG PO QAM Mexiletine HCl (Mexiletine HCl) 200 Mg Capsule 200 MG PO TID 8AM, 2PM, 10PM Simvastatin (Simvastatin) 40 Mg Tablet 40 MG PO QPM Tamsulosin (Flomax) 0.4 Mg Capsule 0.4 MG PO QAM Warfarin Sodium (Warfarin Sodium) 5 Mg Tablet 5 MG PO QPM General Time Seen by MD: 11:34 Chief Complaint Other (AICD fired ) Hx Obtained From: Patient Arrived By: Walk-in Sudden in Onset?: Yes Severity: Current: No pain currently Severity: Maximum: No pain Recent Healthcare: Recent hospitalization Risk Factors )( CAD Risk Stratification Known CAD Risk factors reviewed )( TAD Risk Stratification HypertensionNo Risk factors reviewed )( PE Risk Stratification No , No , No Previous DVT, No Previous PE Risk factors reviewed Past Medical History Past Medical History 1. Coronary artery disease, with previous history of coronary artery bypass grafting in 1999. a. Severe ischemic cardiomyopathy, with last ejection fraction 20% to 25%, status post AICD placement in 2006. 2. Mitral valve disease, status post annuloplasty repair. AV node ablation and biventricular ICD placement. 3. Chronic atrial fibrillation, on warfarin. 4. Stage 3 chronic kidney disease. 5. Right middle lung pneumonia, April 2010, requiring hospitalization. 6. Atopic dermatitis. 7. Chronic venous stasis with recurrent lower extremity cellulitis. 8. Hypertension. 9. Dyslipidemia. 10. Obesity. 11. Gout. 12. Chronic lung disease, with last pulmonary function test June 2013 showing mixed moderate restrictive and obstructive pattern. 13. Chronic anemia, on iron replacement. 14. BPH. 15. DM Past Surgical History Annuloplasty repair. AV node ablation and biventricular ICD placement. One vessel bypass surgery Mitral valve repair. [facility] AICD placement Smoking History Former Smoker Social History Other Social History: Good social support, Ambulatory Status Independent Review of Systems Review of Systems Note: +defibrillator fired Constitutional: Denies: Chills, Fever Respiratory: Denies: Non-productive cough, Prod cough, clear, Shortness of breath Cardiovascular: Denies: Chest pain GI: Denies: Diarrhea, Nausea, Vomiting Neurologic: Reports: Lightheaded Complete sys rev & neg: except as marked. Female: Denies: Dysuria Physical Exam Initial Vital Signs Vital Signs (First) Date Time Temp Pulse Resp B/P Pulse Ox O2 Delivery O2 Flow Rate FiO2 03/16/17 11:24 60 18 131/75 100 Room Air Initial VS: Reviewed Head / Eyes: Atraumatic, Normocephalic Skin: Warm, Dry Neurologic: Alert, Oriented, Nonfocal Psychiatric: Mood/affect normal, Behavior normal, Normal thought content General/Constitutional: Awake, Alert, No acute distress Respiratory / Chest: Breath sounds NL, Breath sounds = bilat, No respiratory distress midline sternotomy scar AICD in L upper chest Heart Rate / Rhythm: Positive: Tachycardia Lower Ext Edema: Positive: Bilateral 1+ Abdomen: Atraumatic, Soft, Non-tender Neck: Atraumatic, Supple, Full range of motion, No JVD Interpretation & Diagnostics Lab Results Interpretation Result Diagram: 03/16/17 1200 03/16/17 1200 Test 03/16/17 12:00 White Blood Count 6.2th/mm3 (3.8-10.1) Red Blood Count 3.71mil/mm3 (4.40-5.80) Hemoglobin 11.7g/dL (13.8-17.2) Hematocrit 37.1% (41.0-50.0) Mean Corpuscular Volume 100.0fL (81-100) Mean Corpuscular Hemoglobin 31.5pg (27.0-35.0) Mean Corpuscular Hemoglobin Concent 31.5% (32.0-37.0) Red Cell Distribution Width 13.8% (12.3-15.4) Platelet Count 123bil/L (150-400) Neutrophils (%) (Auto) 79.2% (40-74) Lymphocytes (%) (Auto) 9.4% (14-46) Monocytes (%) (Auto) 9.1% (4-12) Eosinophils (%) (Auto) 1.8% (0-5) Basophils (%) (Auto) 0.3% (0-3) Prothrombin Time 12.3sec (8.1-12.5) Prothromb Time International Ratio 1.15ratio Sodium Level 140mEq/L (134-144) Potassium Level 4.1mEq/L (3.5-5.2) Chloride Level 99mEq/L (97-108) Carbon Dioxide Level 26mmol/L (18-29) Blood Urea Nitrogen 32mg/dL (8-27) Creatinine 1.59mg/dL (0.76-1.27) Estimat Glomerular Filtration Rate 46mL/min (>59) Glucose Level 114mg/dL (60-99) Calcium Level 8.8mg/dL (8.5-10.1) Magnesium Level 2.1mg/dL (1.6-2.6) Total Bilirubin 0.6mg/dL (0.0-1.2) Aspartate Amino Transf (AST/SGOT) 21U/L (0-50) Alanine Aminotransferase (ALT/SGPT) 20U/L (0-44) Alkaline Phosphatase 122U/L (25-160) Troponin T 0.010ug/L (0.0-0.011) Pro-B-Type Natriuretic Peptide 5776pg/mL (0-376) Total Protein 7.4g/dL (6.4-8.4) Albumin 4.0g/dL (3.4-5.0) ECG Interpretation ECG Interpretation: paced with a rate of 155 Time: 11:38 Interpreted by: ED physician X-Ray Chest Interpretation Chest Xray Interpretation: IMPRESSION: 1. Mild pulmonary edema. 2. Chronic pleural thickening redemonstrated bilaterally. Dictated by: Angel Garcia M.D. on 03/16/2017 at 12:06 Approved by: Angel Garcia M.D. on 03/16/2017 at 12:09 View: Portable, 1 view Interpretation / Wet Read by: Interpret - Radiologist Re-Eval/Medical Decision Med Decision/Clinical Course Interrogation identifies recurrent ventricular tachycardia. Will admit. Cardiology consulted. Time of Eval: 13:14 Re-Evaluation/Progress Note: Discussed plan for admission. Patient understands and agrees with plan. All questions addressed at this time. Consultation #1: Referral / Consult Name: Jeremy Fields MD Consulted With: Cardiology Call Returned at: 13:09 Customer Account Administrator: Agrees with eval, Agrees with plan Note: Discussed pt's case. Suggests admit. Consult Amy as well. Consultation #2: Referral / Consult Name: AISHA NAVAS DO Consulted With: Hospitalist Call Returned at: 13:38 Customer Account Administrator: Will see patient, Agrees with eval, Agrees with plan, Accepts admit Note: Discussed pt's case. Accepts admit. Consultation #3: Referral / Consult Name: Francoise Zuniga MD Consulted With: Cardiology Call Returned at: 13:44 Note: Discussed pt's case. Suggests calling Amy. Consultation #4: Referral / Consult Name: Varinder Reyes MD Consulted With: Cardiology Call Returned at: 13:51 Customer Account Administrator: Agrees with eval, Agrees with plan Note: Discussed pt's case. Agrees to consult. Consultation #5: Referral / Consult Name: Francoise Zuniga MD Consulted With: Cardiology Call Returned at: 14:04 Customer Account Administrator: Will see patient, Agrees with eval, Agrees with plan Note: Discussed pt's case and consult with Amy. Will see pt. Counseled Regarding: Diagnosis, Lab results, Need for admission Discharge & Departure Primary Impression: Recurrent ventricular tachycardia Disposition: ADMITTED TO HOSPITAL Discharge Condition All VS Reviewed: Yes Condition: Stable Referrals: NOPCP (PCP) Karan Attestation Portions of this note were transcribed by Ron Gonzalez. I, Dr. Stark personally performed the history, physical exam and medical decision-making; I reviewed and confirmed the accuracy of the information in the transcribed note. Signed by: Karan Meier, 03/16/17 Yoan Stark DO Mar 16, 2017 11:35 RON GONZALEZ Mar 16, 2017 11:49
--- NOTE | 2017-03-16 12:10 | DRSVH ---
PROCEDURE: X-RAY CHEST ONE VIEW, PORTABLE ([id number]) INDICATIONS: Shortness of breath. TECHNIQUE: One view of the chest was acquired. COMPARISON: [facility], CT, CHEST HI-RESOLUTION, 03/25/2014, 8:31. [facility] l, CR, XR CHEST 2VW, 03/23/2016, 10:44. [facility], CR, XR CHEST 1VW (PORTABLE), 7, 19:44. FINDINGS: Surgical changes and devices: Left chest wall AICD demonstrated with leads projecting over the right ventricle and coronary sinus. There are post surgical changes redemonstrated in the mediastinum. Lungs and pleura: There is bilateral pleural thickening redemonstrated. No definite pleural effusio ns or pneumothorax. There is mild pulmonary vascular prominence suggesting mild edema. Mediastinum: Mediastinal contours appear unchanged. Heart size is enlarged. Bones and chest wall: No suspicious bony lesions. Overlying soft tissues appear unremarkable. IMPRESSION: 1. Mild pulmonary edema. 2. Chronic pleural thickening redemonstrated bilaterally. Dictated by: Angel Garcia M.D. on 03/16/2017 at 12:06 Approved by: Angel Garcia M.D. on 03/16/2017 at 12:09
[2017-03-16 12:21] LABS: BASOPHILS % (AUTO) 0.3 % (0-3); EOSINOPHILS % (AUTO) 1.8 % (0-5); MONOCYTES % (AUTO) 9.1 % (4-12); Mean Corpuscular Hemoglobin 31.5 pg (27.0-35.0); NEUTROPHILS % (AUTO) 79.2 % (40-74); Platelet Count 123 bil/L (150-400)
[2017-03-16 12:37] LABS: INR 1.15 ratio
[2017-03-16 12:44] LABS: TROPONIN T 0.01 ug/L (0.0-0.011)
[2017-03-16] MEDS ORDERED: Furosemide 10 mg/mL 4 mL Inj IVPUSH ONE ×2 (13:15→17:55)
[2017-03-16 13:18] LABS: Magnesium 2.1 mg/dL (1.6-2.6)
[2017-03-16] MEDS ORDERED: SIMV40TA5 PO (13:42)
[2017-03-16] MEDS ORDERED: METO200T4 PO (13:43)
[2017-03-16] MEDS ORDERED: Alum-Mag Hydrox-Simeth 30 mL Suspension PO PRN (13:50)
[2017-03-16] MEDS ORDERED: Ondansetron 2 mg/mL 2 mL Inj IVPUSH PRN (13:50)
[2017-03-16] MEDS ORDERED: Polyethylene Glycol (PEG) 17 Gm Powder PO PRN (13:50)
--- NOTE | 2017-03-16 15:47 | PCM.HPMED ---
Subjective Date of Service Mar 16, 2017 Primary Provider: Admitting Physician: Saul Tapia MD Primary Care Physician: Sathish Attending Physician: Saul Tapia MD Admit Status: From the Emergency Department, Admit to [facility] Team Chief Complaint: Shock from ICD History of Present Illness: Mr. Abebe is a 67-year-old male with past medical history of chronic ischemic cardiomyopathy status post four-vessel bypass surgery 2004 and mitral valve repair 17 years ago, chronic atrial fibrillation (on anticoagulation) with prior AV node ablation and biventricular ICD placement, who presented to the emergency department via POV secondary to his implanted defibrillator firing 4 times in total. Patient states this morning he was laying in bed at approximately 0400 when he got up to urinate, when he returned to bed his defibrillator fired which she reports as feeling like "being kicked by a horse" . He was able to go back to sleep then was awoken again at approximately 9:30 when his defibrillator fired again an additional 3 times though he does not remember the last 2 times. Patient's only prodromal symptom was some lightheadedness just prior to the second discharge of his defibrillator. 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 He states he has a slight headache which is relieved with rest. Per [facility] report, patients has had 18 episodes of VT since 03/14/17. ATP was administered 14 times, and he has been shocked a total of 4 times (once at 0426 this morning (36J) and three times at 0939 this morning (36J, 40J x2)).. Of note patient was discharged from [facility] on 03/10/2017 secondary to ventricular tachycardia requiring 5 electrical cardioversions and amiodarone administration. During that time he converted back into V. tach while on lidocaine drip and AICD threshold adjustments followed, lowered to 140 and his metoprolol dose was increased to 200. On discharge he states that his diuretic medication bumetanide was decreased by half, since his spironolactone was discontinued entirely. He states that over the last 4 days his lower extremity edema has increased significantly. In the ED cardiology was consulted, metoprolol dosing was changed to 100 mg a.m. , 50 mg at noon and 100 mg in the p.m. and mexiletine was continued. Dr. Kern of cardiology was consult and since patient has been refractory to amiodarone in the past he would consider administration of sotalol. He did have one episode of lightheadedness while attempting to use the restroom walking down the hallway in the ED. He is currently hemodynamically stable with heart rate in the 80s and normotensive blood pressure. Review of Systems: A comprehensive review of systems was conducted with the patient and found to be negative except as above in the history of present illness. Allergies Coded Allergies: Sulfa (Sulfonamide Antibiotics) (Verified Allergy, Severe, 01/31/12) allopurinol (Unverified Allergy, Unknown, RASH - DIFFUSE, 08/03/13) Uncoded Allergies: PENICILLIN (Allergy, Unknown, 03/16/17) Home Medications Ascorbic Acid (Vitamin C) 500 Mg Capsule.er 500 MG PO QAM Bumetanide (Bumetanide) 1 Mg Tablet 3 MG PO DAILY Cholecalciferol (Vitamin D3) (Vitamin D3) 1,000 Unit Tab.chew 2,000 UNIT PO QPM Febuxostat (Uloric) 40 Mg Tablet 40 MG PO QAM Ferrous Sulfate (Ferrous Sulfate) 325 Mg Tablet 325 MG PO BID Losartan Potassium (Losartan Potassium) 25 Mg Tablet 25 MG PO QAM Metoprolol Succinate ER (Metoprolol Succinate ER) 200 Mg Tab.er.24h 200 MG PO QAM Mexiletine HCl (Mexiletine HCl) 200 Mg Capsule 200 MG PO TID 8AM, 2PM, 10PM Simvastatin (Simvastatin) 40 Mg Tablet 40 MG PO QPM Tamsulosin (Flomax) 0.4 Mg Capsule 0.4 MG PO QAM Warfarin Sodium (Warfarin Sodium) 5 Mg Tablet 5 MG PO QPM PMH Third-degree AV block Ventricular tachycardia Status post CABG Mitral regurgitation Severe left ventricular systolic dysfunction Ischemic cardiomyopathy Hyperlipidemia Tricuspid regurgitation History of myocardial infarction CKD stage IV Hypertension Hyperlipidemia CAD BPH Atrial fibrillation status post AV node ablation and biventricular ICD placement Surgical History Biventricular ICD placement in 2007 CABG 4 in 1999 Mitral valve repair in 1999 Family History Father with type I diabetes Father diagnosed with CAD at age 43 now Mother at age 45 secondary to MVA Sister with hyperlipidemia and type I diabetes Multiple uncles with CAD and subsequent CABG procedures Social History Hx Alcohol Use: No Hx Substance Use: No Hx Tobacco Use: Yes (smoked for 40 years) Smoking Status: Former Smoker Living Arrangement: with Family Exam Vital Signs Vital Sign - Last Date Time Temp Pulse Resp B/P Pulse Ox O2 Delivery O2 Flow Rate FiO2 03/16/17 15:25 36.6 88 18 124/73 99 Room Air Exam General: Awake and alert sitting up in hospital bed in no acute distress, well- developed, well-nourished, appropriately interactive. present at bedside during exam HEENT: Normocephalic, atraumatic. External ears without defect. Pupils equal, round, and reactive to light and accommodation. Neck: Supple with full range of motion. No jugular venous distension. No bruits. Cardiovascular: Regular rate and rhythm with no murmurs Pulmonary: Clear to auscultation bilaterally with no crackles, wheezes, or rhonchi. Normal respiratory effort with no use of accessory muscles. Abdomen: Soft, nontender, nondistended. Extremities: Bilateral lower extremity pitting edema to midthigh Skin: Normal temperature, turgor, and texture Neurological: Cranial nerves grossly intact. Psychiatric: Normal mood and affect. Alert and oriented to person, place, and time. Lab and Diagnostics Result Diagram: 03/16/17 1200 03/16/17 1200 X-Rays, CTs and MRIs . X-RAY CHEST ONE VIEW, PORTABLE IMPRESSION: 1. Mild pulmonary edema. 2. Chronic pleural thickening redemonstrated bilaterally. Dictated by: Angel Garcia M.D. on 03/16/2017 Cardiac Echo Impressions . Echocardiogram Report Interpretation Summary: The left ventricle is moderate-severely dilated but is unchanged in size compared to the previous study. Left ventricular systolic function is severely reduced with the ejection fraction visually estimated to be 20-25% with a significant dyssynchronous contraction pattern due to the paced rhythm with severe global hypokinesis that appears worse in the mid and distal anterior wall and septum extending to the apex. There are no other obvious focal wall motion abnormalities noted but poor endocardial definition reduces the sensitivity for the detection of such. There has been no obvious change compared to the previous study. The right ventricle is not well visualized but grossly appears normal in size with probable normal systolic function, and is likely unchanged compared to the previous study. The right ventricular systolic pressure is estimated at 55 mmHg assuming a right atrial pressure of 15 mm Hg, and is likely similar compared to the previous study. The left atrium is severely dilated and grossly unchanged in size since the prior echo exam. Right atrial size is normal and has mildly decreased in size since the prior echo exam. The mitral valve has been surgically repaired and an annuloplasty ring sewn in place with a mitral valve mean gradient of only 3 mmHg which is lower compared to the previous study and only trace mitral regurgitation. There is mild tricuspid regurgitation that is unchanged compared to the previous study. There is no other significant valvular heart disease. Assessment & Plan Mr. Abebe is a 67-year-old male with past medical history of HTN, CAD, s/p CABG x4, mitral valve repair, AV anni ablation, AICD placement, a fib on coumadin, ventricular tachycardia, DM admitted for ventricular tachycardia with ICD firing 4 Recurrent Ventricular tachycardia, status post AICD discharge with underlying ischemic cardiomyopathy, POA. Under evaluation -Cardiology consult, recommendations are greatly appreciated -Recent echo showed EF of 20-25% -Amiodarone treatment from 2007 until 2012, discontinued secondary to PFT abnormalities -BiVICD -Currently on mexiletine at maximal dose -Increase metoprolol, 100 mg metoprolol succinate a.m., 50 mg noon, 100 mg evening -Nuclear stress test scheduled for the morning -Nothing by mouth after midnight -Dr. Reyes consult for antiarrhythmic management Atrial fibrillation, chronic. Ongoing -Status post AV node ablation -INR subtherapeutic -Continue warfarin dosing per pharmacy Reported Diabetes mellitus, chronic. Ongoing -No current diabetic medications -Last A1c on [facility] record 12/03/2007 6.5 -Repeat A1c pending Hypertension, chronic. Ongoing -Continue to hold losartan 25 mg daily as patient has been mostly hypotensive -Continue to monitor Hyperlipidemia, chronic. Ongoing -Continue home statin CKD, chronic. Ongoing -Creatinine 1.6, range of 2.7-1.4 during last hospital admission -Continue to monitor Patient Status: Patient was admitted under inpatient status with expected length of stay greater than two midnights due to severity of presenting symptoms , risk of adverse event, and complexity of treatment plan. Pain Evaluation: Adequate Pain Control GI Prophylaxis: H2 cynthia VTE Prophylaxis: Other (warfarin, pharmacy to dose) Resuscitation Status: CPR: Attempt Resuscitation Time spent 60 minutes Attending Statement The patient was seen and examined together with Dr. Blankenship on March 16 and I agree with the history, exam findings, and plan as outlined in the note above. I did participate in all aspects of the services provided today, including documentation and the plan of care. The patient presents with recurrent ventricular tachycardia. At this point his metoprolol dose has been increased and he will be followed on telemetry. He will undergo a stress test tomorrow with Alicia. His last test for ischemia was about 9 years ago. He will be seen by Dr. Gonzalez for consideration of sotalol. He is not been able to tolerate amiodarone in the past. AISHA BLANKENSHIP DO Mar 16, 2017 15:47 Saul Tapia MD Mar 16, 2017 18:52
--- NOTE | 2017-03-16 16:34 | CONS ---
[address] [address] CONSULTATION REPORT PATIENT: NORMA KAUR : 1950 MR#: [id number] ADMIT: 03/16/2017 JOB ID: [id number] CARDIOLOGY CONSULTATION: DATE OF SERVICE: 03/16/2017 REASON FOR CARDIOLOGY CONSULTATION: Emergency Department physician, Dr. Stark asked me to see this patient regarding shock from device. CHIEF COMPLAINT: Shock from device. PRESENT HISTORY: This 67-year-old, pleasant, white male who has a history of severe ischemic cardiomyopathy with LV ejection fraction 20% to 25% in the past, status post four-vessel bypass surgery in 2004, history of A-fib; status post AV anni ablation and biventricular AICD insertion, history of ventricular tachycardia, V-fib shock in the past, who was on amiodarone from 2007 up until April 2013, which was discontinued because of pulmonary function test abnormalities, recurrence of shock from ventricular tachycardia in July 2013, started on mexiletine, recent hospital admission for recurrent ventricular tachycardia shock, for which metoprolol dose was increased to 200 mg daily, got again today to the emergency room because of two shocks from AICD. 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 He got momentarily lightheadedness and shock from the AICD. No chest pain, shortness of breath, fever, chills, or stroke like symptoms of bleeding. Then again, he did his morning work and felt shock, hence decided to be evaluated. His device was interrogated. The patient has [facility] device. Since March 14, 2017, the patient had a total of 18 episodes of ventricular tachycardia. ADP was administered 14 times and has been shocked a total of four times; one shock around 4:26 a.m. of 36 joules and three times at around 9:39 a.m. at present, he is lying in bed. He is not having any active chest pain. No significant weight gain since he got discharged from the hospital. No PND, orthopnea, fever, chills, claudication, pain, or bleeding, or stroke-like symptoms. He denies any excessive caffeine intake or recreation medication use or alcohol intake. He is compliant with his medications. He had echocardiogram on March 08, 2017. At that time LV ejection fraction of 20% to 25% with moderate to severely dilated left ventricle, normal right ventricular function, pulmonary artery systolic pressure about 55 mmHg. With history of mitral valve repair, mean gradient across mitral valve was about 3 mmHg with severe mitral regurgitation, mild TR. PAST MEDICAL HISTORY: History of severe ischemic cardiomyopathy, status post four-vessel bypass surgery in 2004 (vein graft to LAD, vein graft to OM, vein graft to OM2 and vein graft to PDA), history of mitral valve repair, history of ventricular tachycardia since October 2007, status post amiodarone from 2007 up until April 2013 which was discontinued due to pulmonary function test abnormalities, on mexiletine since July 2013, history of atrial fibrillation, status post AV anni ablation, BiVICD, underlying diabetes mellitus, hypertension, hyperlipidemia, chronic renal insufficiency, chronic lower extremity swelling. PAST SURGICAL HISTORY: As stated above. ALLERGIES: 1. SULFA. 2. ALLOPURINOL. 3. PENICILLIN. 4. PROCAINAMIDE. With amiodarone, he has pulmonary function test abnormalities. MEDICATIONS: At home: 1. Bumex 3 mg daily in the morning. 2. Mexiletine 200 mg three times a day. 3. Metoprolol succinate 200 mg daily. 4. Simvastatin 40 mg daily. 5. Warfarin 5 mg q.p.m. 6. Flomax 0.4 mg daily. 7. Ferrous sulfate 325 mg b.i.d. 8. Uloric 40 mg daily. 9. Vitamin C. 10. Vitamin D3 SOCIAL HISTORY: Denies any current tobacco abuse. He used to smoke in the past. Denies any alcohol abuse. FAMILY HISTORY: Positive for coronary artery disease. REVIEW OF SYSTEMS: Ten point review of systems were obtained and are negative except as stated above. PHYSICAL EXAMINATION: Vital Signs: Blood pressure 127/72, heart rate 80, respiratory rate 18, oxygen saturation on room air 98%. No significant anemia, jaundice. Neck: I do not appreciate any significant JVD. Chest: Decreased air intake at the bases. CV: S1, S2. Normal. No S3, S4. I do not appreciate any significant murmur. Abdomen: Obese. No visible pulsatile mass or hepatosplenomegaly. Extremities: The patient has 1+ right lower extremity edema with some erythema. Left lower extremity has stocking. CARPET TECHNICIAN: Alert and oriented to time, place, and person. Able to move all four extremities. Vascular: No evidence of critical limb ischemia. LABORATORY DATA: INR 1.15. WBC 6.2, hemoglobin 11.7, platelets 123, polymorphs 7.2. Sodium 140, potassium 4.1, BUN 32, creatinine 1.59. Normal bilirubin, AST, ALT. ProBNP 5776. Troponin T 0.010. On March 08, it was 0.010 as well. IMAGING: X-ray tests: Mild pulmonary vascular prominence and bilateral pleural thickening with thyromegaly. EKG in the emergency department revealed ventricular paced rhythm. Computer calculated QTC 596 msec which does not appear to be right. Some nonspecific ST-T wave changes. ASSESSMENT AND PLAN: Recurrent ventricular tachycardia, status post AICD discharge which appears to be appropriate shock with underlying severe ischemic cardiomyopathy with LV ejection fraction of 20% to 25%. Status post four-vessel bypass surgery in 2004, mitral valve repair, history of atrial fibrillation, status post AV anni ablation with biventricular AICD, intolerance to amiodarone due to pulmonary function test abnormality which was discontinued in 2012, underlying essential hypertension, hyperlipidemia, chronic renal insufficiency, diabetes mellitus. The patient is having recurrent ventricular tachycardia on maximum dose of mexiletine. Recently metoprolol succinate was increased to 200 mg daily. The patient has not had ischemic evaluation. I will plan pharmacological perfusion study to make sure there is no underlying significant ischemia triggering ventricular tachycardia. The patient has underlying scar due to previous extensive myocardial infarction. Clinically at present he does not appear to be in gross volume overload. He is not having any PND, orthopnea like symptoms. His INR is subtherapeutic. Will recommend IV heparin until INR gets therapeutic. Meanwhile, I would further increase beta cynthia to 100 mg metoprolol succinate in the morning, 15 mg at noon, and 100 mg in the evening. I discussed the case with the photo engraver, Dr. Reyes, who will evaluate the patient. Antiarrhythmic management I will leave up to Dr. Reyes. Thank you for the cardiology consult. Will continue to follow this patient. TIME SPENT: Total time spent today having discussion with Dr. Reyes and reviewing old records, about 80 minutes.
[2017-03-16] MEDS ORDERED: PT Own Med->Oral Medication PO ONE (17:20)
[2017-03-16] MEDS ORDERED: Heparin 5,000 Unit/mL Inj IVPUSH PRN (17:35)
--- NOTE | 2017-03-16 17:41 | PCM.PHAPRO ---
Progress Date of Service: Mar 16, 2017 Shock from ICD Warfarin Management per Pharmacy: Indication: Stroke prophylaxis as patient has atrial fibrillation ([id number]- Vasc = 4) Goal INR: 2-3 Home Dose: Warfarin 5 mg PO daily Labs: Hgb/Hct: 11.7/37.1 Plt: 123 INR: 1.15 Drug Interactions: None Additional Anticoagulants: Heparin IV while INR is subtherapeutic Antiplatelet Agents: Aspirin Recommendation: Warfarin 7.5 mg PO x 1 today INR ordered daily w/ AM labs x 7 days Pharmacy to continue to monitor and adjust dose as needed. Thank You, Mirna Dale, Pharm D. Mirna Dale Mar 16, 2017 17:41
[2017-03-16] MEDS: Heparin 25K Unit/500mL 0.45 NS 25,000 UNIT in IV Premix 1 EACH IV SCH (18:50)
--- NOTE | 2017-03-16 19:26 | NUR ---
Admit note Patient admitted to 2029 from [facility] ER, amb to bed with [facility] jose fair. Patient A/O x 4, denies chest pain, nausea or sob. patient oriented to call light, tv, phone, bathroom and poc. VSS, tele V paced, no episodes of VT this shift. Heparin gtt started per orders. Plan for npo after midnight for stress test.
[2017-03-16] MEDS: MeTOProlol XL 50 mg ER24 Tablet PO SCH (20:10)
[2017-03-17] VITALS (9 sets, daily range): BP systolic 101–123; BP diastolic 55–74; PULSE 60–62; RESP 16–20; O2SAT 92–98
[2017-03-17 03:24] LABS: BASOPHILS % (AUTO) 0.2 % (0-3); MONOCYTES % (AUTO) 9.8 % (4-12); Mean Corpuscular Hemoglobin 31.1 pg (27.0-35.0); NEUTROPHILS % (AUTO) 69.9 % (40-74); Platelet Count 147 bil/L (150-400)
[2017-03-17 04:24] LABS: TROPONIN T 0.01 ug/L (0.0-0.011)
--- NOTE | 2017-03-17 06:41 | NUR ---
NPO NPO @ midnight for scheduled stress test this morning. Patient aware and cooperative with plan of care. Currently resting without any complaints.
[2017-03-17] MEDS ORDERED: PT Own Med->Oral Medication PO SCH (08:40)
--- NOTE | 2017-03-17 09:29 | PCM.PNMED ---
Subjective Date of Service Mar 17, 2017 Subjective He is doing well. No defibrillations overnight. No chest pain, palpitations or dyspnea. No nausea or abdominal pain. He denies any other problems. He is going to the bathroom without difficulty. No overnight events noted. Exam Vital Signs Vital Sign - Last Date Time Temp Pulse Resp B/P Pulse Ox O2 Delivery O2 Flow Rate FiO2 03/17/17 08:40 36.7 60 16 123/74 97 Room Air Intake and Output 03/16/17 03/16/17 03/17/17 Cumulative From/Thru 15:00 23:00 07:00 03/16/17 11:24 - 03/17/17 06:09 Intake Total 100 ml 800 ml 900 ml Output Total 250 ml 700 ml 950 ml Balance -150 ml 100 ml -50 ml Intake Oral 100 ml 800 ml 900 ml IV Total 0 ml 0 ml Output Urine Total 250 ml 700 ml 950 ml # Voids 4 4 Exam Alert and oriented -3, no distress. Fluent speech Anicteric sclera. Lungs are clear with normal rate and effort Heart is regular without murmur gallop or rub Abdomen soft nontender, flat Extremities are free of edema. Skin is free of rash or lesions. IVs and Medications Medications Reviewed: Medications were reviewed in detail Lab and Diagnostics Result Diagram: 03/17/1731403/17/17314 X-Rays, CTs and MRIs . X-RAY CHEST ONE VIEW, PORTABLE IMPRESSION: 1. Mild pulmonary edema. 2. Chronic pleural thickening redemonstrated bilaterally. Dictated by: Angel Garcia M.D. on 03/16/2017 Cardiac Echo Impressions . Echocardiogram Report Interpretation Summary: The left ventricle is moderate-severely dilated but is unchanged in size compared to the previous study. Left ventricular systolic function is severely reduced with the ejection fraction visually estimated to be 20-25% with a significant dyssynchronous contraction pattern due to the paced rhythm with severe global hypokinesis that appears worse in the mid and distal anterior wall and septum extending to the apex. There are no other obvious focal wall motion abnormalities noted but poor endocardial definition reduces the sensitivity for the detection of such. There has been no obvious change compared to the previous study. The right ventricle is not well visualized but grossly appears normal in size with probable normal systolic function, and is likely unchanged compared to the previous study. The right ventricular systolic pressure is estimated at 55 mmHg assuming a right atrial pressure of 15 mm Hg, and is likely similar compared to the previous study. The left atrium is severely dilated and grossly unchanged in size since the prior echo exam. Right atrial size is normal and has mildly decreased in size since the prior echo exam. The mitral valve has been surgically repaired and an annuloplasty ring sewn in place with a mitral valve mean gradient of only 3 mmHg which is lower compared to the previous study and only trace mitral regurgitation. There is mild tricuspid regurgitation that is unchanged compared to the previous study. There is no other significant valvular heart disease. Assessment & Plan Mr. Abebe is a 67-year-old male with past medical history of HTN, CAD, s/p CABG x4, mitral valve repair, AV anni ablation, AICD placement, a fib on coumadin, ventricular tachycardia, DM admitted for ventricular tachycardia with ICD firing 4 #. Recurrent Ventricular tachycardia, status post AICD discharge with underlying ischemic cardiomyopathy, POA. No activity overnight. This is stable. -Cardiology consult, recommendations are greatly appreciated -Recent echo showed EF of 20-25% -Amiodarone treatment from 2007 until 2012, discontinued secondary to PFT abnormalities -BiVICD -Currently on mexiletine at maximal dose -Increase metoprolol, 100 mg metoprolol succinate a.m., 50 mg noon, 100 mg evening -Nuclear stress test scheduled for the morning -Nothing by mouth after midnight -Dr. Reyes consult for antiarrhythmic management #. Atrial fibrillation, chronic. Ongoing and stable -Status post AV node ablation -INR subtherapeutic -Continue warfarin dosing per pharmacy #. Chronic systolic heart failure, ischemic cardiomyopathy. Present on admission and stable. We will continue usual medications. #. Diabetes mellitus 2, chronic. Ongoing and stable -No current diabetic medications -Last A1c on [facility] record 12/03/2007 6.5 -Repeat A1c pending #. Essential Hypertension, chronic. Ongoing and stable -Continue to hold losartan 25 mg daily as patient has been mostly hypotensive -Continue to monitor #. Hyperlipidemia, chronic. Ongoing and stable -Continue home statin #. CKD stage III, chronic. Ongoing and stable -Creatinine 1.6, range of 2.7-1.4 during last hospital admission -Continue to monitor Patient Status: Patient was admitted under inpatient status with expected length of stay greater than two midnights due to severity of presenting symptoms , risk of adverse event, and complexity of treatment plan. GI Prophylaxis: H2 cynthia VTE Prophylaxis: Other (warfarin, pharmacy to dose) Resuscitation Status: CPR: Attempt Resuscitation Saul Tapia MD Mar 17, 2017 09:28
[2017-03-17] MEDS ORDERED: MeTOProlol XL 50 mg ER24 Tablet PO SCH (12:00)
[2017-03-17] MEDS: Ascorbic Acid 500 mg Tablet PO SCH (12:10)
[2017-03-17] MEDS: MeTOProlol XL 50 mg ER24 Tablet PO SCH ×2 (12:10→19:34)
[2017-03-17] MEDS: Heparin 25K Unit/500mL 0.45 NS 25,000 UNIT in IV Premix 1 EACH IV SCH (12:11)
[2017-03-17 12:40] LABS: INR 1.33 ratio
--- NOTE | 2017-03-17 12:41 | PROG NOTE ---
[address] [address] PROGRESS NOTE PATIENT: NORMA KAUR : 1950 MR#: [id number] ADMIT: 03/16/2017 JOB ID: [id number] DATE: 03/17/2017 CHIEF COMPLAINT: Palpitations and shocks from the ICD. SUBJECTIVE: The patient is a very pleasant 67-year-old man with a history of severe ischemic myopathy who has been troubled with recurrent ventricular tachycardia for some time and has been treated with antiarrhythmic medications in the past. He was admitted yesterday because of shocks from the ICD but overnight he has not had recurrent arrhythmia and no more shocks. He has no specific complaints this morning and is not short of breath at rest or having chest pain. OBJECTIVE: BP 123/74, pulse regular at 60, respirations unlabored at 16, and oximetry 97% on room air. Serum chemistry this morning shows sodium 140, potassium 3.6, creatinine 1.36. Troponin-T is 0.010 among other values. His magnesium yesterday was good at 2.1. A brief examination shows him to be resting comfortably in bed without labored respirations. He has no evident JVD. Chest shows good clear breath sounds in all hassan. Heart exam is regular, without murmurs. Abdomen is nontender and bowel sounds present. Extremities: Lower extremities show edema bilaterally at 2+/4+. Interrogation of the ICD shows no recent VT episode since admission. A couple of VT episodes in the device memory show onset monomorphic ventricular tachycardia at about 153 BPM followed by antitachycardia pacing which accelerates the rhythm to a monomorphic VT at 170 BPM. This put the VT rate in the so-called VF zone and the therapy there was shock rather than additional anti-tach pacing. In the most recent episode with shock, the 1st shock accelerated him into ventricular fibrillation, the subsequent shock was not successful, but the 3rd shock restored a paced and normal rhythm. ASSESSMENT AND PLAN: The patient has been troubled with recurrent ventricular tachycardia and ICD shocks. He has been treated with mexiletine t.i.d. and this has not kept him out of V-tach. After discussions with Nadia Tan, and Saul Tapia, we will stop the mexiletine and start him on sotalol. He has already missed several doses of mexiletine and there is no severe reaction between two medications so it is okay to go ahead and start sotalol now. Will begin at 80 mg b.i.d. and record his QT interval at 2-3 hours after each dose. His ECG performed before beginning sotalol showed a paced ventricular rhythm at 60 BPM with a QT interval of 480 msec and a QTc of the same 480 msec. The wide paced QRS adds about 40 msec to the QT interval, and so the upper limit of QTc permissible with a paced rhythm is 550 msec rather than 500 msec with a normal QRS. Also I made adjustments to the ICD today and changed the rate zone for VF from 160 BPM up to 187 BPM to allow for additional runs of antitachycardia pacing prior to shock delivery. The lower zone, VT zone is 139-187 BPM. Today famotidine and mexiletine and Zofran will be stopped in order to not interact with the sotalol.
--- NOTE | 2017-03-17 14:28 | PCM.PHAPRO ---
Progress Shock from ICD WARFARIN DAILY DOSING INDICATION: A.FIB GOAL: INR 2-3 TODAY'S INR 1.33 Date 1-Mar 2-Mar INR 1.15 1.33 INR change 0.18 Warf Dose 7.5 7.5 DI review NONE NONE Enox/Heparin IV HEPAR IV HEPARIN antiplatelet tx ASA 81 ASA 81 HCT/PLT review 37.1/123 32.8/147 Misti Perla Pharm.D Mar 17, 2017 14:28
--- NOTE | 2017-03-17 16:20 | NUR ---
MIBI/Hep GTT/Sotolol Patient a/o x 4, denies chest pain or sob. Patient oob amb indep in room steady gait. Patient down for MIBI this a.m. and returned to room at 1100. VSS, tele V paced 60's at rest 90-100's with activity. Patient taking diet well. Having multiple BM's this shift. BLE with edema. Hep gtt cont per protocol. Patient started on Sotolol this afternoon, EKG done 2 hours post Sotolol dose. Will cont poc.
--- NOTE | 2017-03-17 16:39 | NUR ---
Social Work Note: Initial Assessment Data& Assessment: EMR Reviewed. ROOFER METAL met with pt at bedside to discuss discharge planning, ROOFER METAL role explained and Discharge Planning Checklist provided. Angel Jefferson is a 67 year old male admitted on 03/16/2017 for recurrent VT. Pt has Medicare and [facility] supplemental insurance coverage. Pt is in the process of transferring his primary care over to Dr. Bey. Pt lives in [place] with his spouse and is independent at baseline with all ADL's and no DME needs. Pt drives. Pt does not have HH or SNF hx. Pt does not have LTC insurance or VA benefits. Pt has DPOA/AD paperwork completed, ROOFER METAL requested a copy when possible. Pt denies any other needs at this time. Pt to transport home when medically ready. MD does not identify any concerns for pt capacity for self care at this time. ROOFER METAL to continue to follow if pt needs or MD orders arise. Plan: Anticipated discharge home via POV when medically ready. Pt denies any other needs. ROOFER METAL to continue to follow if pt needs or MD orders arise. RUBEN Elliott Addendum: 03/17/17 at 1640 by UNA MARQUEZ Amended: Links added.
[2017-03-17] MEDS ORDERED: MEXILETINE 200 MG CAPSULE PO SCH (22:00)
[2017-03-18] VITALS (10 sets, daily range): BP systolic 96–117; BP diastolic 60–67; PULSE 54–70; RESP 16–20; O2SAT 94–99
[2017-03-18 04:33] LABS: INR 1.54 ratio
--- NOTE | 2017-03-18 06:44 | NUR ---
Sotalol Sotalol administered per orders. No significant QTC changes or adverse effects noted. Tele Remains VPaced 60's. Currently resting without any complaints.
[2017-03-18] MEDS: MeTOProlol XL 50 mg ER24 Tablet PO SCH ×2 (09:22→20:27)
[2017-03-18] MEDS: Ascorbic Acid 500 mg Tablet PO SCH (09:22)
--- NOTE | 2017-03-18 10:21 | PCM.PNMED ---
Subjective Date of Service Mar 18, 2017 Subjective 67-year-old male with medical history significant for chronic ischemic cardiomyopathy, CAD with 4 vessel bypass, chronic A. fib with AV anni ablation and biventricular ICD placement presented to the ED after his BiVICD fired due to recurrent V. tach. Mild lightheadedness, this is not new however. Patient otherwise has no new complaints. No chest pain, shortness of breath. Exam Vital Signs Vital Sign - Last Date Time Temp Pulse Resp B/P Pulse Ox O2 Delivery O2 Flow Rate FiO2 03/18/17 08:35 36.6 60 18 112/67 95 Room Air Intake and Output 03/17/17 03/17/17 03/18/17 Cumulative From/Thru 15:00 23:00 07:00 03/16/17 11:24 - 03/18/17 06:52 Intake Total 1326 ml 528 ml 2754 ml Output Total 1225 ml 1300 ml 3475 ml Balance 101 ml -772 ml -721 ml Intake Oral 1000 ml 280 ml 2180 ml IV Total 326 ml 248 ml 574 ml Output Urine Total 1225 ml 1300 ml 3475 ml # Voids 3 7 Exam General: No acute distress, appropriately interactive HEENT: Normocephalic, atraumatic. PERRLA, EOMI, Anicteric sclerae, moist conjunctivae. Neck: No JVD, No bruits. No lymphadenopathy or thyromegaly. Cardiovascular: Regular rate and rhythm with no murmurs, rubs, or gallops appreciated Pulmonary: b/l air sound with no crackles, wheezes, or rhonchi. no use of accessory muscles. Abdomen: +Bowel sound, Soft, nontender, nondistended. Extremities: No clubbing or cyanosis, no lymphedema, bilateral pitting edema to the knee, decreased from admission. Skin: Normal temperature, turgor, and texture; no rash. No visualized skin ulcer. Neurological: CN II-VII grossly intact, moving equally on all 4 extremities Psychiatric: Normal mood and affect. AOx3 Lab and Diagnostics Result Diagram: 03/17/1731403/17/17314 X-Rays, CTs and MRIs . X-RAY CHEST ONE VIEW, PORTABLE IMPRESSION: 1. Mild pulmonary edema. 2. Chronic pleural thickening redemonstrated bilaterally. Dictated by: Angel Garcia M.D. on 03/16/2017 Cardiac Echo Impressions . Echocardiogram Report Interpretation Summary: The left ventricle is moderate-severely dilated but is unchanged in size compared to the previous study. Left ventricular systolic function is severely reduced with the ejection fraction visually estimated to be 20-25% with a significant dyssynchronous contraction pattern due to the paced rhythm with severe global hypokinesis that appears worse in the mid and distal anterior wall and septum extending to the apex. There are no other obvious focal wall motion abnormalities noted but poor endocardial definition reduces the sensitivity for the detection of such. There has been no obvious change compared to the previous study. The right ventricle is not well visualized but grossly appears normal in size with probable normal systolic function, and is likely unchanged compared to the previous study. The right ventricular systolic pressure is estimated at 55 mmHg assuming a right atrial pressure of 15 mm Hg, and is likely similar compared to the previous study. The left atrium is severely dilated and grossly unchanged in size since the prior echo exam. Right atrial size is normal and has mildly decreased in size since the prior echo exam. The mitral valve has been surgically repaired and an annuloplasty ring sewn in place with a mitral valve mean gradient of only 3 mmHg which is lower compared to the previous study and only trace mitral regurgitation. There is mild tricuspid regurgitation that is unchanged compared to the previous study. There is no other significant valvular heart disease. Assessment & Plan Mr. Abebe is a 67-year-old male with past medical history of HTN, CAD, s/p CABG x4, mitral valve repair, AV anni ablation, AICD placement, a fib on coumadin, ventricular tachycardia, DM admitted for ventricular tachycardia with ICD firing 4 #. Recurrent Ventricular tachycardia, status post AICD discharge with underlying ischemic cardiomyopathy, POA. No activity overnight. This is stable. -Cardiology consult, recommendations are greatly appreciated -Recent echo showed EF of 20-25% -Amiodarone treatment from 2007 until 2012, discontinued secondary to PFT abnormalities -BiVICD -Currently on mexiletine at maximal dose -Metoprolol XL 100 mg twice a day -Dr. Reyes consult for antiarrhythmic management #. Atrial fibrillation, chronic. Ongoing and stable -Status post AV node ablation -INR subtherapeutic -Continue on heparin drip bridging -warfarin dosing per pharmacy #. Chronic systolic heart failure, ischemic cardiomyopathy. Present on admission and stable. - On an TERRANCE inhibitor, beta cynthia, statin, aspirin -Diuresed with Bumex 3 mg daily #. Diabetes mellitus 2, chronic. Ongoing and stable -No current diabetic medications -Last A1c on [employer] record 12/03/2007 6.5 -Repeat A1c pending #. Essential Hypertension, chronic. Ongoing and stable -Continue to hold losartan 25 mg daily as patient has been mostly hypotensive -Continue to monitor #. Hyperlipidemia, chronic. Ongoing and stable -Continue home statin #. CKD stage III, chronic. Ongoing and stable -Creatinine 1.6, range of 2.7-1.4 during last hospital admission -Continue to monitor Disposition: will be 2-3 days before warfarin becomes therapeutic and able to discharge GI Prophylaxis: H2 cynthia VTE Prophylaxis: Other (warfarin, pharmacy to dose) Resuscitation Status: CPR: Attempt Resuscitation Attending Statement The patient was seen and examined together with on March 18 and I agree with the history, exam findings, and plan as outlined in the note above. I did participate in all aspects of the services provided today, including documentation and the plan of care. The plan is to continue sotalol load for 5 doses. The patient has a stable QT and QTC today. He has had no recurrence of ventricular arrhythmias since admission. Mexiletine has been stopped as previously discussed with cardiology. Aman Caba DO Mar 18, 2017 10:20 Saul Tapia MD Mar 19, 2017 07:46
[2017-03-18 10:58] LABS: Mean Corpuscular Hemoglobin 30.7 pg (27.0-35.0); Mean Corpuscular Volume 100.6 fL (81-100)
[2017-03-18] MEDS: Heparin 25K Unit/500mL 0.45 NS 25,000 UNIT in IV Premix 1 EACH IV SCH (11:37)
--- NOTE | 2017-03-18 13:55 | PROG NOTE ---
[address] [address] PROGRESS NOTE PATIENT: NORMA KAUR : 1950 MR#: [id number] ADMIT: 03/16/2017 JOB ID: [id number] DATE: 03/18/2017 SUBJECTIVE: No recurrence of shock from AICD. The patient denies at present any active chest pain or worsening shortness of breath, PND, orthopnea, or new cardiovascular symptoms. PHYSICAL EXAMINATION: Blood pressure 107/67, heart rate 60, respiratory rate 18, oxygen saturation 99%. Positive hepatojugular reflux. Chest: Bilateral decreased air entry and some crepitations. CVS: S1, S2 normal. No S3, no S4. No significant murmur. Abdomen: Obese. Extremities: 1+ bilateral pedal edema. SECURITY ASSURANCE ANALYST: Alert, oriented to time, place, and person. Vascular: No evidence of critical limb ischemia. Telemetry: Ventricular paced rhythm with some PVCs. His QTc today after sotalol was about 481 msec. LABORATORIES: WBC 5.7, hemoglobin 10.7. Yesterday it was 10.5. Platelets 123. Sodium 138, potassium 4.0, BUN 26, creatinine 1.22. PTT 66.9. Sodium 138, potassium 4.0, BUN 26, creatinine 1.22. Serial troponin normal. ASSESSMENT AND PLAN: This 67-year-old, pleasant male who has a history of severe ischemic cardiomyopathy with left ventricular ejection fraction 20% to 25% in the past, status post four-vessel bypass surgery in 2004, history of atrial fibrillation, status post atrioventricular anni ablation and biventricular automatic implantable cardioverter-defibrillator, history of ventricular tachycardia, ventricular fibrillation shock in the past, who was on amiodarone from 2007 up until 2012, which was discontinued because of primary pulmonary function test abnormalities, history of recurrent shock from ventricular tachycardia in July 2013, started on mexiletine, again recurrence of recurrent ventricular tachycardia for which he was in the hospital for which metoprolol was increased, who again got admitted due to recurrence of ventricular tachycardia and automatic implantable cardioverter-defibrillator shock. In the hospital, the patient ruled out for acute myocardial infarction. We discussed the case with Dr. Reyes. Yesterday mexiletine was discontinued and patient was started on sotalol. He is on 80 mg b.i.d. So far, no significant prolongation of QTc. He had a pharmacological perfusion study today. There is no reversible ischemia. The patient has significant infarction of the distal anterior wall, entire apex, mid to distal inferior wall, distal septum and basal inferolateral wall. Patient used to take Bumex 3 mg twice a day. At present, he is taking 3 mg once a day. I will optimize his diuretics and further increase Bumex to additional 2 mg in the evening. Continue heparin until the INR becomes therapeutic. Continue sotalol as per protocol. Discussed the plan with the patient. He agrees and concurs. Total time spent today about 35 minutes.
--- NOTE | 2017-03-18 15:40 | DRSVH ---
PROCEDURE: TWO DAY STRESS TEST. Rest and pharmacological stress myocardial perfusion SPECT with gat ed imaging and ejection fraction RADIOPHARMACEUTICAL: 22.7 mCi Tc-99m tetrofosmin IV at rest and 22 mCi Tc-99m tetrofosmin IV at peak effect of pharmacological stress. [id number] was performed. INDICATIONS: VENTRICULAR TACHYCARDIA. ISCHEMIC CARDIOMYOPATHY. TECHNIQUE: Radiopharmaceutical was injected at peak stress test, and also at rest. SPECT images wer e obtained. SPECT myocardial perfusion images were displayed in short axis, horizontal long axis, an d vertical long axis views. Gated images were reviewed using [employer] software. COMPARISON: None. CARDIAC STRESS: A pharmacologic stress test was performed under the supervision of attending staff u sing an infusion of Lexiscan as per protocol. Hemodynamic Data: There was normal blood pressure and heart rate response to pharmacologic stress. Symptoms: The patient denied anginal chest pain, however, had a headache and nausea, which was brief . It resolved with caffeine. Aminophylline: No aminophylline was given. EKG: Baseline rhythm was ventricular paced rhythm. There were no new significant ST-T changes durin g stress. There were occasional PACs. There were occasional PVCs as well. FINDINGS: Raw Data: There appears to be adequate myocardial uptake. There was increased subdiaphragmatic acti vity. Left Ventricular Function: Resting LV end diastolic volume 246 mL. Resting LV ejection fraction 32% . Stress LV ejection fraction 34%. [place] appears to be dyskinetic. Myocardial Perfusion: Stress supine, resting supine and stress prone images were compared to each ot her. It appears the patient has a predominantly fixed, moderate to large-size severe perfusion defec t of the distal anterior wall, entire apex, mid to distal inferior wall extending into the basal infe rolateral wall as well as distal septum, consistent with old infarction. I do not see any significan t reversible ischemia. IMPRESSION: This is an abnormal myocardial perfusion study consistent with significant infarction of the distal anterior wall, entire apex, mid to distal inferior wall extending into the basal inferola teral wall and distal septum without any significant reversible ischemia. The left ventricular end d iastolic volume is 246 mL, suggestive of significant left ventricular enlargement. The resting left ventricular ejection fraction is 32 and stress left ventricular ejection fraction is 34%. Dictated by: Francoise Zuniga M.D. on 03/18/2017 at 11:24 Transcribed by: ADRIENNE on 03/18/2017 at 18:40 Approved by: Francoise Zuniga M.D. on 03/19/2017 at 14:34
--- NOTE | 2017-03-18 19:20 | NUR ---
Heparin/Sotolol/Activity Patient a/o x 4, denies chest pain, nausea or sob. Patient oob amb indep in room and braun jose well. VSS, tele V paced. Heparin gtt infusing, PTT therapuetic. Sotolol dose given and EKG done 2 hours post med.
[2017-03-19] VITALS (9 sets, daily range): BP systolic 94–114; BP diastolic 55–70; PULSE 56–61; RESP 16; O2SAT 92–98
[2017-03-19 03:20] LABS: Mean Corpuscular Hemoglobin 30.6 pg (27.0-35.0); Mean Corpuscular Volume 98.9 fL (81-100)
[2017-03-19 03:57] LABS: INR 1.66 ratio
--- NOTE | 2017-03-19 04:47 | NUR ---
Sotolol/Heparin Sotolol given and EKG done 2 hours post, heparin gtt infusing and therapeutic, next pTT with be in the AM 03/20/17. Denies CP and SOB. VSS and Tele Vpaced 60's
--- NOTE | 2017-03-19 07:58 | PCM.PHAPRO ---
Progress Date of Service: Mar 19, 2017 Warfarin Date 1-Mar 2-Mar 3-Mar 19-Mar INR 1.15 1.33 1.54 1.66 INR change 0.18 0.21 0.12 Warf Dose 7.5 MG 7.5 MG 7.5 MG 7.5 MG Estevan Romero Mar 19, 2017 07:58
[2017-03-19] MEDS: Ascorbic Acid 500 mg Tablet PO SCH (08:24)
[2017-03-19] MEDS: MeTOProlol XL 50 mg ER24 Tablet PO SCH ×2 (08:24→21:35)
--- NOTE | 2017-03-19 11:48 | PROG NOTE ---
[address] [address] PROGRESS NOTE PATIENT: NORMA KAUR : 1950 MR#: [id number] ADMIT: 03/16/2017 JOB ID: [id number] DATE: 03/19/2017 SUBJECTIVE: The patient overall is stable. Denies any worsening shortness of breath or chest pain, or new shock from the device, PND or orthopnea. Yesterday, I increased Bumex to 3 mg in the morning and 2 mg in the evening. He has good diuresis yesterday. Yesterday, he was in negative balance of 1951. OBJECTIVE: Blood pressure 110/70, heart rate 60, respiratory rate 16, oxygen saturation on room air 97%. HEENT: Today, I do not appreciate any significant JVD. Chest: Decreased air entry at the bases with few crepitations. CVS: S1, S2 normal. No S3, no S4. No significant murmur. Extremities: Still has 1+ bilateral pedal edema. Abdomen: Obese. RANGER AIDE: Alert, oriented to time, place, and person. Vascular: No evidence of critical limb ischemia. Telemetry: Ventricular paced rhythm without any obvious ventricular tachycardia. DIAGNOSTIC STUDIES: EKG, after yesterday evening dose, QTc 533 msec. However, on telemetry at present, QTc 0.46 msec. Hemoglobin 11.2, platelets 149. Sodium 141, potassium 4.2, BUN 26, creatinine 1.27. He came with a creatinine of 1.59. ASSESSMENT AND PLAN: This 67-year-old, pleasant, male, who has a history of severe ischemic cardiomyopathy with left ventricular (LV) ejection fraction 20-25%, history of 4-vessel bypass surgery in 2004, history of atrial fibrillation, status post atrioventricular (AV) anni ablation. Biventricular automatic implantable cardioverter defibrillator (AICD), recurrent ventricular tachycardia and ventricular fibrillation, who was on amiodarone from 2007 up until 2012, which was discontinued because of primary pulmonary function test abnormalities, recurrence of ventricular tachycardia in July 2013, started on mexiletine, again recent hospitalization for recurrent ventricular tachycardia, AICD shock, for which mexiletine was discontinued, started on sotalol the day before yesterday, who underwent pharmacological perfusion study which did not reveal any reversible ischemia, along with the presence of old infarction involving distal anterior wall, entire apex, mid to distal inferior wall, distal septum and basal inferior lateral wall with underlying chronic predominantly systolic congestive heart failure. At present, the patient is tolerating sotalol. As he has underlying ventricular paced rhythm, cut off for QTc interval is about 550 msec. So far, no recurrence of ventricular tachycardia. With increased Bumex, he started having good urine output. His creatinine is coming down. If he remains stable without any significantly prolonged QTc tomorrow, he can be discharged home. Pharmacist is managing his protime. Target INR between 2-3. Today, his INR is 1.66. Discussed the plan with the patient. He agrees and concurs. The patient to see Dr. Reyes as well as his director digital sales, Dr. Fields, as an outpatient. TOTAL TIME SPENT: Today, is about 35 minutes.
[2017-03-19] MEDS: Heparin 25K Unit/500mL 0.45 NS 25,000 UNIT in IV Premix 1 EACH IV SCH (12:52)
--- NOTE | 2017-03-19 14:50 | PCM.PNMED ---
Subjective Date of Service Mar 19, 2017 Subjective Patient uneventful night, without any complaints today. Patient reports ambulating around the braun without any shortness of breath, chest pain, palpitation, dizziness, or lightheadedness. QTC was noted to change from 430 to 530 morning. Patient has been on sotalol 80 mg twice a day for the past [address] Zuniga note no changes to current regiment should QTc remains <550mms. INR 1.66 today on warfarin. Will need to be therapeutic prior to discharge. Exam Vital Signs Vital Sign - Last Date Time Temp Pulse Resp B/P Pulse Ox O2 Delivery O2 Flow Rate FiO2 03/19/17 12:00 36.4 60 16 104/62 98 Room Air Intake and Output 03/18/17 03/18/17 03/19/17 Cumulative From/Thru 14:59 22:59 06:59 03/16/17 11:24 - 03/19/17 05:15 Intake Total 1031 ml 400 ml 4185 ml Output Total 2350 ml 5825 ml Balance 1031 ml -1950 ml -1640 ml Intake Oral 800 ml 400 ml 3380 ml IV Total 231 ml 805 ml Output Urine Total 2350 ml 5825 ml # Voids 6 13 # Bowel Movements 0 0 Exam General: No acute distress, appropriately interactive HEENT: Normocephalic, atraumatic. PERRLA, EOMI, Anicteric sclerae, moist conjunctivae. Neck: No JVD, No bruits. No lymphadenopathy or thyromegaly. Cardiovascular: Regular rate and rhythm with no murmurs, rubs, or gallops appreciated Pulmonary: b/l air sound with no crackles, wheezes, or rhonchi. no use of accessory muscles. Abdomen: +Bowel sound, Soft, nontender, nondistended. Extremities: No clubbing or cyanosis, no lymphedema, bilateral pitting edema to the knee, decreased from admission. Skin: Normal temperature, turgor, and texture; no rash. No visualized skin ulcer. Neurological: CN II-VII grossly intact, moving equally on all 4 extremities Psychiatric: Normal mood and affect. AOx3 Lab and Diagnostics Result Diagram: 03/19/175 03/19/17314 X-Rays, CTs and MRIs . X-RAY CHEST ONE VIEW, PORTABLE IMPRESSION: 1. Mild pulmonary edema. 2. Chronic pleural thickening redemonstrated bilaterally. Dictated by: Angel Garcia M.D. on 03/16/2017 Cardiac Echo Impressions . Echocardiogram Report Interpretation Summary: The left ventricle is moderate-severely dilated but is unchanged in size compared to the previous study. Left ventricular systolic function is severely reduced with the ejection fraction visually estimated to be 20-25% with a significant dyssynchronous contraction pattern due to the paced rhythm with severe global hypokinesis that appears worse in the mid and distal anterior wall and septum extending to the apex. There are no other obvious focal wall motion abnormalities noted but poor endocardial definition reduces the sensitivity for the detection of such. There has been no obvious change compared to the previous study. The right ventricle is not well visualized but grossly appears normal in size with probable normal systolic function, and is likely unchanged compared to the previous study. The right ventricular systolic pressure is estimated at 55 mmHg assuming a right atrial pressure of 15 mm Hg, and is likely similar compared to the previous study. The left atrium is severely dilated and grossly unchanged in size since the prior echo exam. Right atrial size is normal and has mildly decreased in size since the prior echo exam. The mitral valve has been surgically repaired and an annuloplasty ring sewn in place with a mitral valve mean gradient of only 3 mmHg which is lower compared to the previous study and only trace mitral regurgitation. There is mild tricuspid regurgitation that is unchanged compared to the previous study. There is no other significant valvular heart disease. Assessment & Plan 67-year-old male with medical history significant for chronic ischemic cardiomyopathy, CAD with 4 vessel bypass, chronic A. fib with AV anni ablation and biventricular ICD placement presented to the ED after his BiVICD fired 4x due to recurrent V. tach. #. Recurrent Ventricular tachycardia, status post AICD discharge with underlying ischemic cardiomyopathy, POA. No activity overnight. This is stable. -Recent echo showed EF of 20-25% -Amiodarone treatment from 2007 until 2012, discontinued secondary to PFT abnormalities -BiVICD -Metoprolol XL 100 mg twice a day with sotalol 80mg BID -Cardiology continues to follow. #. Atrial fibrillation, chronic. Ongoing and stable -Status post AV node ablation -INR subtherapeutic -Continue on heparin drip bridging -warfarin dosing per pharmacy #. Chronic systolic heart failure, ischemic cardiomyopathy. Present on admission and stable. - On an TERRANCE inhibitor, beta cynthia, statin, aspirin -Increased Bumex to 3 mg am and 2mg HS per cardiology. -monitor urine output and Creatinine #. Diabetes mellitus 2, chronic. Ongoing and stable -No current diabetic medications -Last A1c on [employer] record 12/03/2007 6.5 -Repeat A1c pending #. Essential Hypertension, chronic. Ongoing and stable -Continue to hold losartan 25 mg daily as patient has been mostly hypotensive -Continue to monitor #. Hyperlipidemia, chronic. Ongoing and stable -Continue home statin #. CKD stage III, chronic. Ongoing and stable -Creatinine 1.6, range of 2.7-1.4 during last hospital admission -Continue to monitor Disposition: will be 1-2 days before warfarin becomes therapeutic and able to discharge GI Prophylaxis: H2 cynthia VTE Prophylaxis: Other (warfarin, pharmacy to dose) Resuscitation Status: CPR: Attempt Resuscitation Attending Statement The patient was seen and examined together with on March 19 and I agree with the history, exam findings, and plan as outlined in the note above. I did participate in all aspects of the services provided today, including documentation and the plan of care. The patient will complete his low-dose sotalol and be observed for 72 hours. His QT has been relatively stable. Anticipate discharge tomorrow morning. Aman Caba DO Mar 19, 2017 14:50 Saul Tapia MD Mar 20, 2017 08:41
--- NOTE | 2017-03-19 19:01 | NUR ---
Activity/Sotolol Patient a/o x 3, denies pain, nausea or sob. Up indep amb in halls, steady gait. VSS, tele V paced. Sotolol given and EKG done 2 hours after medication. Heparin gtt infusing, PTT therapuetic and Warfarin given.
[2017-03-20 03:17] VITALS: BP 104/51; PULSE 60; RESP 17; O2SAT 94
[2017-03-20 04:42] LABS: INR 1.73 ratio
--- NOTE | 2017-03-20 07:01 | NUR ---
Cardiac: Tele Vpaced overnight- denies any chest pain or discomfort. HS sotalol given, EKG done 2hrs after. PT sleeping comfortably, care ongoing.
[2017-03-20 07:53] VITALS: BP 110/67; PULSE 60; RESP 16; O2SAT 94
[2017-03-20 08:00] VITALS: PULSE 60
[2017-03-20] MEDS: Ascorbic Acid 500 mg Tablet PO SCH (08:50)
[2017-03-20] MEDS: MeTOProlol XL 50 mg ER24 Tablet PO SCH (08:50)
[2017-03-20 09:05] VITALS: PULSE 63
--- NOTE | 2017-03-20 12:44 | PCM.DIMED ---
Aman Caba H 03/20/17 1244: Discharge Instructions Date of Service Mar 20, 2017 Dates of Hospitalization Mar 16, 2017 at 14:31 Discharge Diagnosis Discharge Diagnosis Recurrent Ventricular tachycardia, stable Atrial fibrillation, chronic. Ongoing and stable Chronic systolic heart failure, ischemic cardiomyopathy. Present on admission and stable. Diabetes mellitus 2, chronic. Ongoing and stable Essential Hypertension, chronic. Ongoing and stable Hyperlipidemia, chronic. Ongoing and stable CKD stage III, chronic. Ongoing and stable Medication Instructions Additional med instructions Heart medication 1. Sotalol 80 mg twice a day 2. Metoprolol XL 100 mg twice a day Please take these medications as instructed Diuretics "water pill" 1. Bumex 3 mg in the morning 2. Bumex 2 mg in the evening I have given you a prescription for a 7 day supply. Please talk with your primary care providers to further continue this medication. Blood thinning medication Take 7.5mg of warfarin qd. This means taking 1.5 tablets of your 5 mg warfarin qd You will need to go to a [facility] clinic and readjust dose accordingly in 2-3 days Diet Discharge Diet: Heart Healthy Activity Discharge Activity: No restrictions, Home Health Phyical Therapy Call your provider Call your provider for: Shortness of breath, Bleeding, Chest pain, Weakness ( unilateral) Patient Instructions Patient Instructions Please call your security assistant/PCP or come back to the ED should you have increasing chest pain, shortness of breath or lightheadedness dizziness. Follow-up plan You were admitted to the hospital for recurrent ventricular tachycardia, an arrhythmia that caused your AICD to fire. We have adjusted your heart medication according to our security assistant Dr. Zuniga 's recommendation. Sotalol and metoprolol has sent to your pharmacy for you the pickup. Please follow the instruction written. Date listhesis below are the appointments you need to keep. 03/27/2017 remote ICD check This done at home 04/20/2017 at 2 PM device check at [facility] cardiology with Jared Donovan 06/27/2017 at 10:[address] AM with security assistant [address] Fields Follow-up with PCP in: 1 week Saul Tapia MD 03/20/17 0154: Discharge Instructions Attending's Statement The patient was seen and examined together with on March 20 and I agree with the history, exam findings, and plan as outlined in the note above. I did participate in all aspects of the services provided today, including documentation and the plan of care. The patient has done well on his sotalol load. The plan is to discharge home. He has extensive follow-up appointment set up with cardiology. These are all detail. In addition he is going to attempt to make a new appointment with Dr. Bey in the [facility], [place], operated by [facility]. Aman Caba DO Mar 20, 2017 12:44 Saul Tapia MD Mar 20, 2017 17:24
[2017-03-20] MEDS ORDERED: BUME1TAB4 PO ×2 (12:45)
[2017-03-20] MEDS ORDERED: WARF5TAB7 PO (12:45)
--- NOTE | 2017-03-20 13:30 | NUR ---
Discharge note Patient a/o x 3, up amb indep, steady gait. Patient denies pain, nausea or sob. Sotalol dose given and EKG done 2 hrs post med. IV SL and tele removed intact. Patient given discharge instructions, med rec, info on new meds and prescriptions. All questions answered. Home meds returned to patient. Patient taken to the car via wheelchair with all belongings and discharged home with .
--- NOTE | 2017-03-20 13:36 | NUR ---
Social Work: Discharge/Multidisciplinary Rounds D: Pt discussed in multidisciplinary Rounds; the patient is medically stable for discharge home. Discharge needs and capacity for self-care addressed; no concerns or discharge needs identified. Pt to discharge home with his . MARINE DIESEL MECHANIC met with the patient at bedside to confirm discharge plan and assess for unmet discharge needs. Pt and both state that they are eager for the patient to get home. They deny any needs and state patient has been ambulating I and participating in his own self-care. Bedside RN will review discharge instructions and medications. A: Pt who is I at baseline and lives with his . P: Pt to discharge home via POV and no sw needs. to transport. RUBEN Arguello
--- NOTE | 2017-03-20 15:24 | PCM.DC.MED ---
Discharge Summary Date of Service Mar 20, 2017 Dates of Hospitalization Date of Hospital Admission Mar 16, 2017 at 14:31 Date of Discharge: Mar 20, 2017 Providers: Admitting Physician: Saul Tapia MD Primary Care Physician: Sathish Attending Physician: Saul Tapia MD Diagnosis at Time of Discharge Diagnosis at Time of Discharge Recurrent Ventricular tachycardia, stable Atrial fibrillation, chronic. Ongoing and stable Chronic systolic heart failure, ischemic cardiomyopathy. Present on admission and stable. Diabetes mellitus 2, chronic. Ongoing and stable Essential Hypertension, chronic. Ongoing and stable Hyperlipidemia, chronic. Ongoing and stable CKD stage III, chronic. Ongoing and stable Procedures XRay, CTs & MRIs . X-RAY CHEST ONE VIEW, PORTABLE IMPRESSION: 1. Mild pulmonary edema. 2. Chronic pleural thickening redemonstrated bilaterally. Dictated by: Angel Garcia M.D. on 03/16/2017 Cardiac Echo Impression . Echocardiogram Report Interpretation Summary: The left ventricle is moderate-severely dilated but is unchanged in size compared to the previous study. Left ventricular systolic function is severely reduced with the ejection fraction visually estimated to be 20-25% with a significant dyssynchronous contraction pattern due to the paced rhythm with severe global hypokinesis that appears worse in the mid and distal anterior wall and septum extending to the apex. There are no other obvious focal wall motion abnormalities noted but poor endocardial definition reduces the sensitivity for the detection of such. There has been no obvious change compared to the previous study. The right ventricle is not well visualized but grossly appears normal in size with probable normal systolic function, and is likely unchanged compared to the previous study. The right ventricular systolic pressure is estimated at 55 mmHg assuming a right atrial pressure of 15 mm Hg, and is likely similar compared to the previous study. The left atrium is severely dilated and grossly unchanged in size since the prior echo exam. Right atrial size is normal and has mildly decreased in size since the prior echo exam. The mitral valve has been surgically repaired and an annuloplasty ring sewn in place with a mitral valve mean gradient of only 3 mmHg which is lower compared to the previous study and only trace mitral regurgitation. There is mild tricuspid regurgitation that is unchanged compared to the previous study. There is no other significant valvular heart disease. Brief History Mr. Abebe is a 67-year-old male with past medical history of chronic ischemic cardiomyopathy status post four-vessel bypass surgery 2004 and mitral valve repair 17 years ago, chronic atrial fibrillation (on anticoagulation) with prior AV node ablation and biventricular ICD placement, who presented to the emergency department via POV secondary to his implanted defibrillator firing 4 times in total. Patient states this morning he was laying in bed at approximately 0400 when he got up to urinate, when he returned to bed his defibrillator fired which she reports as feeling like "being kicked by a horse" . He was able to go back to sleep then was awoken again at approximately 9:30 when his defibrillator fired again an additional 3 times though he does not remember the last 2 times. Patient's only prodromal symptom was some lightheadedness just prior to the second discharge of his defibrillator. 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 He states he has a slight headache which is relieved with rest. Per [facility] report, patients has had 18 episodes of VT since 03/14/17. ATP was administered 14 times, and he has been shocked a total of 4 times (once at 0426 this morning (36J) and three times at 0939 this morning (36J, 40J x2)).. Of note patient was discharged from [facility] on 03/10/2017 secondary to ventricular tachycardia requiring 5 electrical cardioversions and amiodarone administration. During that time he converted back into V. tach while on lidocaine drip and AICD threshold adjustments followed, lowered to 140 and his metoprolol dose was increased to 200. On discharge he states that his diuretic medication bumetanide was decreased by half, since his spironolactone was discontinued entirely. He states that over the last 4 days his lower extremity edema has increased significantly. In the ED cardiology was consulted, metoprolol dosing was changed to 100 mg a.m. , 50 mg at noon and 100 mg in the p.m. and mexiletine was continued. Dr. Kern of cardiology was consult and since patient has been refractory to amiodarone in the past he would consider administration of sotalol. He did have one episode of lightheadedness while attempting to use the restroom walking down the hallway in the ED. He is currently hemodynamically stable with heart rate in the 80s and normotensive blood pressure. Hospital Course 67-year-old male with medical history significant for chronic ischemic cardiomyopathy, CAD with 4 vessel bypass, chronic A. fib with AV anni ablation and biventricular ICD placement presented to the ED after his BiVICD fired 4x due to recurrent V. tach while on mexiletine. This medication has since discontinued and replaced with sotalol 80 mg twice a day and metoprolol 100 mg twice a day which patient is tolerating. #. Recurrent Ventricular tachycardia, status post AICD discharge with underlying ischemic cardiomyopathy, POA. No activity overnight. This is stable. -Recent echo showed EF of 20-25%, has BiVICD -Amiodarone treatment from 2007 until 2012, discontinued secondary to PFT abnormalities, placed on mexiletine and failed due to recent shock. -Per cardiology Dr. Zuniga -cont sotalol 80mg BID. maintain QTc <550mms. -Cont Metoprolol XL 100mg BID -Patient currently 100% ventricularly paced. QTc 500 at discharge #. Atrial fibrillation, chronic. Ongoing and stable -Status post AV node ablation -anticoag warfarin. INR 1.73 today. Received 1 dose lovenox prior to d/c -warfarin 7.5nightly -Strongly recommend [facility] clinic in 2-3days #. Chronic systolic heart failure, ischemic cardiomyopathy. Present on admission and stable. - On an TERRANCE inhibitor, beta cynthia, statin, aspirin -Cont bumex 3mg in AM and 2mg in the PM per cardiology -no electrolytes abnormality noted in patient -recommend f/u BMP, kidney function in 1wk and consider continuing regiment #. Diabetes mellitus 2, chronic. Ongoing and stable -No current diabetic medications -Repeat A1c 6.3 #. Essential Hypertension, chronic. Ongoing and stable -cont home losartan, bp 110/67 at discharge -advise to hold losartan should patient felt lightheadedness, dizziness. #. Hyperlipidemia, chronic. Ongoing and stable -Continue home statin #. CKD stage III, chronic. Ongoing and stable -Creatinine 1.6, range of 2.7-1.4 during last hospital admission Exam Vital Signs (Last) Date Time Temp Pulse Resp B/P Pulse Ox O2 Delivery O2 Flow Rate FiO2 03/20/17 09:05 63 03/20/17 07:53 36.7 16 110/67 94 Room Air Exam General: No acute distress, appropriately interactive HEENT: Normocephalic, atraumatic. PERRLA, EOMI, Anicteric sclerae, moist conjunctivae. Neck: No JVD, No bruits. No lymphadenopathy or thyromegaly. Cardiovascular: Irregularly irregular rate and rhythm. No appreciable murmur or gallop. Pulmonary: b/l air sound with no crackles, wheezes, or rhonchi. no use of accessory muscles. Abdomen: +Bowel sound, Soft, nontender, nondistended. Extremities: No clubbing or cyanosis, no lymphedema, b/l 2+ lower leg edema Skin: Normal temperature, turgor, and texture; no rash. No visualized skin ulcer. Neurological: CN II-VII grossly intact, moving equally on all 4 extremities Psychiatric: Normal mood and affect. AOx3 Test 03/16/17 12:00 03/17/17 03:15 03/19/17 03:15 03/20/17 04:00 Hemoglobin A1c 6.3% (4.8-5.6) Magnesium Level 2.1mg/dL (1.6-2.6) Pro-B-Type Natriuretic Peptide 5776pg/mL (0-376) Neutrophils (%) (Auto) 69.9% (40-74) Lymphocytes (%) (Auto) 16.9% (14-46) Monocytes (%) (Auto) 9.8% (4-12) Eosinophils (%) (Auto) 3.0% (0-5) Basophils (%) (Auto) 0.2% (0-3) Total Bilirubin 0.4mg/dL (0.0-1.2) Aspartate Amino Transf (AST/SGOT) 19U/L (0-50) Alanine Aminotransferase (ALT/SGPT) 17U/L (0-44) Alkaline Phosphatase 102U/L (25-160) Troponin T 0.010ug/L (0.0-0.011) Total Protein 6.4g/dL (6.4-8.4) Albumin 3.2g/dL (3.4-5.0) White Blood Count 6.0th/mm3 (3.8-10.1) Red Blood Count 3.66mil/mm3 (4.40-5.80) Hemoglobin 11.2g/dL (13.8-17.2) Hematocrit 36.2% (41.0-50.0) Mean Corpuscular Volume 98.9fL (81-100) Mean Corpuscular Hemoglobin 30.6pg (27.0-35.0) Mean Corpuscular Hemoglobin Concent 30.9% (32.0-37.0) Red Cell Distribution Width 13.9% (12.3-15.4) Platelet Count 149bil/L (150-400) Prothrombin Time 18.7sec (8.1-12.5) Prothromb Time International Ratio 1.73ratio Sodium Level 138mEq/L (134-144) Potassium Level 4.0mEq/L (3.5-5.2) Chloride Level 98mEq/L (97-108) Carbon Dioxide Level 26mmol/L (18-29) Blood Urea Nitrogen 27mg/dL (8-27) Creatinine 1.14mg/dL (0.76-1.27) Estimat Glomerular Filtration Rate 68mL/min (>59) Glucose Level 109mg/dL (60-99) Calcium Level 8.7mg/dL (8.5-10.1) Test 03/20/17 09:55 Activated Partial Thromboplast Time 89.9sec (22.8-33.0) Discharge Medications Discharge Medications Ascorbic Acid (Vitamin C) 500 Mg Capsule.er 500 MG PO QAM (Reported) Bumetanide (Bumetanide) 1 Mg Tablet 2 MG PO 2029 Prescribed by: THALIA DAWN DO Bumetanide (Bumetanide) 1 Mg Tablet 3 MG PO DAILY Prescribed by: THALIA DAWN DO Cholecalciferol (Vitamin D3) (Vitamin D3) 1,000 Unit Tab.chew 2,000 UNIT PO QPM (Reported) Febuxostat (Uloric) 40 Mg Tablet 40 MG PO QAM (Reported) Ferrous Sulfate (Ferrous Sulfate) 325 Mg Tablet 325 MG PO BID (Reported) Losartan Potassium (Losartan Potassium) 25 Mg Tablet 25 MG PO QAM (Reported) Simvastatin (Simvastatin) 40 Mg Tablet 40 MG PO QPM (Reported) Tamsulosin (Flomax) 0.4 Mg Capsule 0.4 MG PO QAM (Reported) Warfarin Sodium (Warfarin Sodium) 5 Mg Tablet 7.5 MG PO QPM Prescribed by: THALIA DAWN DO Additional med instructions Heart medication 1. Sotalol 80 mg twice a day 2. Metoprolol XL 100 mg twice a day Please take these medications as instructed Diuretics "water pill" 1. Bumex 3 mg in the morning 2. Bumex 2 mg in the evening I have given you a prescription for a 7 day supply. Please talk with your primary care providers to further continue this medication. Blood thinning medication Take 7.5mg of warfarin qd. This means taking 1.5 tablets of your 5 mg warfarin qd You will need to go to a [facility] clinic and readjust dose accordingly in 2-3 days Followup Plan Follow-up plan You were admitted to the hospital for recurrent ventricular tachycardia, an arrhythmia that caused your AICD to fire. We have adjusted your heart medication according to our facility service associate Dr. Zuniga 's recommendation. Sotalol and metoprolol has sent to your pharmacy for you the pickup. Please follow the instruction written. Date listhesis below are the appointments you need to keep. 03/27/2017 remote ICD check This done at home 04/20/2017 at 2 PM device check at [facility] cardiology with Jared Donovan 06/27/2017 at 10:20 AM with facility service associate Dr. Fields Discharge Diet: Heart Healthy Discharge Activity: No restrictions, Home Health Phyical Therapy Patient Instructions Please call your facility service associate/PCP or come back to the ED should you have increasing chest pain, shortness of breath or lightheadedness dizziness. Follow-up with PCP in: 1 week Time spent 50 minutes Attending Statement The patient was seen and examined together with on March 20 and I agree with the history, exam findings, and plan as outlined in the note above. I did participate in all aspects of the services provided today, including documentation and the plan of care. The patient is stable for discharge home on sotalol 80 twice a day and metoprolol succinate 100 mg twice a day. The patient has follow-up set up and will be attempted to establish primary care with his new physician Dr. Bey. copies to: Arnel Bey,Thalia H Mar 20, 2017 15:24 Saul Tapia MD Mar 20, 2017 17:41
== END 2017-03-20 15:00 | disposition home or self-care (01) | DRG 309 ==
LOC: SED 11:19 → PCC 14:31
PROVIDERS: ADMIT Hospitalist; ATTEND Hospitalist
PROC: 3E0D7RZ Introduction of Antiarrhythmic into Mouth and Pharynx, Via Natural or Artificial Opening (ICD-10-PCS; principal; 2017-03-16)
DX: I47.2 Ventricular tachycardia (principal); I50.22 Chronic systolic (congestive) heart failure; I25.5 Ischemic cardiomyopathy; I25.10 Atherosclerotic heart disease of native coronary artery without angina pectoris; E11.9 Type 2 diabetes mellitus without complications; I12.9 Hypertensive chronic kidney disease with stage 1 through stage 4 chronic kidney disease, or unspecified chronic kidney disease; N18.3 Chronic kidney disease, stage 3 (moderate); E78.5 Hyperlipidemia, unspecified; M10.9 Gout, unspecified; J44.9 Chronic obstructive pulmonary disease, unspecified; I48.2 Chronic atrial fibrillation; I34.0 Nonrheumatic mitral (valve) insufficiency; Z79.01 Long term (current) use of anticoagulants; Z88.0 Allergy status to penicillin; Z95.1 Presence of aortocoronary bypass graft; Z87.891 Personal history of nicotine dependence; Z95.810 Presence of automatic (implantable) cardiac defibrillator